=== PATIENT | male | born 1940 | race American Indian/Alaskan Native ===

== ENCOUNTER 2018-02-19 15:34 | Emergency (ER) | payer MEDICARE ==
[2018-02-19 17:07] LABS: Basophils % (Auto) 0.7 % (0.0-1.8); Eosinophils # (Auto) 0.2 K/mm3 (0.0-0.4); Eosinophils % (Auto) 4.3 % (0.0-4.3); Hematocrit 37.4 % (35.5-45.6); Hemoglobin 12.3 gm/dl (11.8-15.2); Lymphocytes # (Auto) 1.7 K/mm3 (1.2-5.4); Mean Corpuscular HGB Conc 33 % (32-34); Mean Corpuscular Hemoglobin 30 pg (28-32); Mean Corpuscular Volume 90 fl (84-94); Monocytes # (Auto) 0.7 K/mm3 (0.0-0.8); Monocytes % (Auto) 13.3 % (0.0-7.3); Platelet Count 186 K/mm3 (140-440); Red Blood Count 4.14 M/mm3 (3.65-5.03); Red Cell Distribution Width 14.8 % (13.2-15.2)
[2018-02-19 17:22] LABS: Alanine Aminotransferase 7 units/L (7-56); Albumin 3.7 g/dL (3.9-5); BUN/Creatinine Ratio 16; Blood Urea Nitrogen 18 mg/dL (9-20); Calcium 8.8 mg/dL (8.4-10.2); Hemolysis Index 5
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
--- NOTE | 2018-02-19 18:24 | XRay Report ---
FINAL REPORT EXAM: XR CHEST 1V AP HISTORY: Altered Mental Status TECHNIQUE: AP portable view of the chest PRIORS: None. FINDINGS: Lines, tubes, and devices: N/A Lungs and pleura: Trachea is normal in position. Lungs are clear of infiltrate, pleural effusion, vascular congestion, or pneumothorax. Cardiomediastinal silhouette: Cardiac and mediastinal silhouettes are unremarkable. Other: Bony structures are intact. IMPRESSION: No acute cardiopulmonary process seen.
--- NOTE | 2018-02-19 19:08 | Cat Scan Report ---
FINAL REPORT EXAM: CT HEAD/BRAIN WO CON HISTORY: AMS TECHNIQUE: Standard unenhanced CT of the head at 5.0 millimeter axial increments. PRIORS: None. FINDINGS: The ventricular system is normal in size and configuration. There is moderate cerebral and cerebellar atrophy. Low-density in the periventricular white matter in the bilateral centrum semiovale is noted. There is no evidence for mass lesion, mass effect, midline shift, acute intracranial hemorrhage, or acute ischemia/ infarction. No evidence for acute skull fracture is seen. No abnormality in the overlying scalp soft tissues is seen. Visualized paranasal sinuses are clear. IMPRESSION: Moderate atrophy and small vessel ischemic changes. No acute intracranial process noted.
[2018-02-19 21:16] VITALS: BP 118/62
== END 2018-02-19 22:56 | disposition home or self-care (01) ==
LOC: ED 15:34 → EDBD 15:34 → ED 22:56
DX: G30.9 Alzheimer's disease, unspecified (principal); I50.9 Heart failure, unspecified; E11.9 Type 2 diabetes mellitus without complications; K21.9 Gastro-esophageal reflux disease without esophagitis
CPT/HCPCS: 36415; 70450; 71045; 80053; 82140; 84443; 84484; 85025; 93005; 93010; 99285; G0480; 80320

== ENCOUNTER 2019-02-06 12:17 | Inpatient (IN) | payer MEDICARE ==
--- NOTE | 2019-02-06 13:45 | XRay Report ---
AP CHEST: HISTORY: Altered mental status AP view of the chest demonstrates a normal mediastinal and cardiac contour with clear lungs and normal bony and soft tissue structures. IMPRESSION: Unremarkable AP chest.
--- NOTE | 2019-02-06 13:48 | Emergency Department Report ---
ED Neuro Deficit HPI - General Chief Complaint: Altered Mental Status Stated Complaint: AMS Time Seen by Provider: 02/06/19 12:22 Source: EMS Mode of arrival: Stretcher Limitations: Altered Mental Status - History of Present Illness Initial Comments: This is a 78 year old man who is sent from longterm for evaluation of alteration of mental status. The patient is unable to give any historical information. The charge nurse, Jenise, got information from the treating nurses at the longterm. They stated that the patient is normally confused but a mbulatory. Today he had to be wheeled for breakfast in a wheelchair at 6:30 in the morning. He remained confused non-ambulatory and not speaking as much as he usually does. Ultimately they decided to send him to the emergency department for evaluation of his altered mental status. -: During the night Location: speech History of same: No Place: other (longterm) Severity: moderate, severe On Anticoagulants: No - Related Data Home Medications: Previous Rx's Medication Instructions Recorded Last Taken Type Nitrofurantoin [place]/M-Cryst 100 mg PO Q12HR #14 capsule 02/22/18 Unknown Rx [Macrobid CAP] Allergies/Adverse Reactions: Allergies Allergy/AdvReac Type Severity Reaction Status Date / Time No Known Allergies Allergy Verified 02/19/18 16:51 ED Review of Systems ROS: Stated complaint: AMS Other details as noted in HPI Comment: Unobtainable due to pts medical conditions ED Past Medical Hx - Past Medical History Previous Medical History?: Yes Hx Congestive Heart Failure: Yes Hx Diabetes: Yes Hx GERD: Yes Additional medical history: Hx Alzheimer's disease; Dementia; Rhabdomyolysis - Social History Smoking Status: Former Smoker Substance Use Type: Alcohol - Medications Home Medications: Home Medications Medication Instructions Recorded Confirmed Last Taken Type Nitrofurantoin [place]/M-Cryst 100 mg PO Q12HR #14 capsule 02/22/18 Unknown Rx [Macrobid CAP] ED Neuro Physical Exam - General Limitations: Altered Mental Status General appearance: alert, in no apparent distress Suspected Stroke: Yes (possible but subacute) - Head Head exam: Present: atraumatic, normocephalic - Eye Eye exam: Present: normal appearance - ENT ENT exam: Present: mucous membranes moist, other (perhaps slight facial asymmetry left side down) - Neck Neck exam: Present: normal inspection. Absent: tenderness, meningismus - Respiratory Respiratory exam: Present: normal lung sounds bilaterally. Absent: respiratory distress - Cardiovascular Cardiovascular Exam: Present: regular rate, normal rhythm. Absent: systolic murmur, diastolic murmur, rubs, gallop - GI/Abdominal GI/Abdominal exam: Present: soft, normal bowel sounds. Absent: distended, tenderness, guarding, rebound - Rectal Rectal exam: Present: deferred - Extremities Exam Extremities exam: Present: normal inspection - Back Exam Back exam: Present: normal inspection - Neurological Exam Neurological exam: Present: alert, oriented X3. Absent: CN II-XII intact (question facial asymmetry, no obvious deficits as testable) - NIHSS Assessment Interval: Baseline 1a. Level of Consciousness: arousable/minor stimuli 1b. LOC Questions: answers no questions correctly 1c. LOC Commands: performs no tasks correctly 2. Best Gaze: normal 3. Visual: no visual loss 4. Facial Palsy: minor paralysis (possibly) 5b. Motor Arm Right: no drift 5a. Motor Arm Left: no drift 6a. Motor Leg Left: no drift 6b. Motor Leg Right: no drift 7. Limb Ataxia: absent 8. Sensory: normal 9. Best Language: mild/moderate aphasia 10. Dysarthria: severe dysarthria 11. Extinction/Inattention: no abnormality (may be more attributable to mental status change) Total Score: 9 Stroke Severity: Moderate Stroke - Psychiatric Psychiatric exam: Present: normal affect, normal mood - Skin Skin exam: Present: warm, dry, intact, normal color. Absent: rash ED Course Vital Signs 02/06/19 02/06/19 02/06/19 12:22 12:40 13:20 Temperature 98.3 F Pulse Rate 77 97 H Respiratory 16 16 18 Rate Blood Pressure 111/90 99/52 [Left] O2 Sat by Pulse 98 96 96 Oximetry - Reevaluation(s) Reevaluation #1: Still awaiting CT images. I informed nursing. 02/06/19 13:48 02/06/19 15:36 D[address]ed with nephrology and Dr. Benitez. Admitted by Dr. Cook with nephrology consultation. Initial fluid resuscitation with normal saline and then half normal saline. Empiric antibiotics. Slowly ordered. CT the abdomen and pelvis to rule out obstruction. Further care per hospitalist service. Reevaluation #2: Obviously no indication for TPA. 02/06/19 15:39 - Lab Data Result diagrams: 02/06/19 13:13 02/06/19 13:13 Lab Results 02/06/19 02/06/19 02/06/19 Range/Units 13:13 13:13 13:13 WBC 10.0 (4.5-11.0) K/mm3 RBC 4.19 (3.65-5.03) M/mm3 Hgb 12.2 (11.8-15.2) gm/dl Hct 38.7 (35.5-45.6) % MCV 92 (84-94) fl MCH 29 (28-32) pg MCHC 32 (32-34) % RDW 18.3 H (13.2-15.2) % Plt Count 200 (140-440) K/mm3 Lymph % (Auto) 20.5 (13.4-35.0) % [place] % (Auto) 6.2 (0.0-7.3) % Eos % (Auto) 0.4 (0.0-4.3) % Baso % (Auto) 0.4 (0.0-1.8) % Lymph # 2.0 (1.2-5.4) K/mm3 [place] # 0.6 (0.0-0.8) K/mm3 Eos # 0.0 (0.0-0.4) K/mm3 Baso # 0.0 (0.0-0.1) K/mm3 Seg Neutrophils % 72.5 H (40.0-70.0) % Seg Neutrophils # 7.2 (1.8-7.7) K/mm3 PT 16.1 H (12.2-14.9) Sec. INR 1.21 H (0.87-1.13) APTT 31.1 (24.2-36.6) Sec. Sodium 165 H* (137-145) mmol/L Potassium 6.0 H (3.6-5.0) mmol/L Chloride 127.7 H (98-107) mmol/L Carbon Dioxide 18 L (22-30) mmol/L Anion Gap 25 mmol/L BUN 138 H (9-20) mg/dL Creatinine 6.1 H (0.8-1.5) mg/dL Estimated GFR 11 ml/min BUN/Creatinine Ratio 23 % Glucose 118 H (75-100) mg/dL Lactic Acid (0.7-2.0) mmol/L Calcium 8.9 (8.4-10.2) mg/dL Total Bilirubin 0.20 (0.1-1.2) mg/dL Direct Bilirubin < 0.2 (0-0.2) mg/dL Indirect Bilirubin 0.0 mg/dL AST 32 (5-40) units/L ALT 37 (7-56) units/L Alkaline Phosphatase 81 (35-129) units/L Ammonia (25-60) umol/L Total Creatine Kinase 698 H (55-170) units/L Troponin T 0.027 (0.00-0.029) ng/mL Total Protein 7.8 (6.3-8.2) g/dL Albumin 3.9 (3.9-5) g/dL Albumin/Globulin Ratio 1.0 % TSH (0.270-4.200) mlU/mL Blood Type Antibody Screen 02/06/19 02/06/19 02/06/19 Range/Units 13:13 13:13 13:13 WBC (4.5-11.0) K/mm3 RBC (3.65-5.03) M/mm3 Hgb (11.8-15.2) gm/dl Hct (35.5-45.6) % MCV (84-94) fl MCH (28-32) pg MCHC (32-34) % RDW (13.2-15.2) % Plt Count (140-440) K/mm3 Lymph % (Auto) (13.4-35.0) % [place] % (Auto) (0.0-7.3) % Eos % (Auto) (0.0-4.3) % Baso % (Auto) (0.0-1.8) % Lymph # (1.2-5.4) K/mm3 [place] # (0.0-0.8) K/mm3 Eos # (0.0-0.4) K/mm3 Baso # (0.0-0.1) K/mm3 Seg Neutrophils % (40.0-70.0) % Seg Neutrophils # (1.8-7.7) K/mm3 PT (12.2-14.9) Sec. INR (0.87-1.13) APTT (24.2-36.6) Sec. Sodium (137-145) mmol/L Potassium (3.6-5.0) mmol/L Chloride (98-107) mmol/L Carbon Dioxide (22-30) mmol/L Anion Gap mmol/L BUN (9-20) mg/dL Creatinine (0.8-1.5) mg/dL Estimated GFR ml/min BUN/Creatinine Ratio % Glucose (75-100) mg/dL Lactic Acid 2.80 H* (0.7-2.0) mmol/L Calcium (8.4-10.2) mg/dL Total Bilirubin (0.1-1.2) mg/dL Direct Bilirubin (0-0.2) mg/dL Indirect Bilirubin mg/dL AST (5-40) units/L ALT (7-56) units/L Alkaline Phosphatase (35-129) units/L Ammonia 28.0 (25-60) umol/L Total Creatine Kinase (55-170) units/L Troponin T (0.00-0.029) ng/mL Total Protein (6.3-8.2) g/dL Albumin (3.9-5) g/dL Albumin/Globulin Ratio % TSH 0.644 (0.270-4.200) mlU/mL Blood Type Antibody Screen 02/06/19 Range/Units 13:13 WBC (4.5-11.0) K/mm3 RBC (3.65-5.03) M/mm3 Hgb (11.8-15.2) gm/dl Hct (35.5-45.6) % MCV (84-94) fl MCH (28-32) pg MCHC (32-34) % RDW (13.2-15.2) % Plt Count (140-440) K/mm3 Lymph % (Auto) (13.4-35.0) % [place] % (Auto) (0.0-7.3) % Eos % (Auto) (0.0-4.3) % Baso % (Auto) (0.0-1.8) % Lymph # (1.2-5.4) K/mm3 [place] # (0.0-0.8) K/mm3 Eos # (0.0-0.4) K/mm3 Baso # (0.0-0.1) K/mm3 Seg Neutrophils % (40.0-70.0) % Seg Neutrophils # (1.8-7.7) K/mm3 PT (12.2-14.9) Sec. INR (0.87-1.13) APTT (24.2-36.6) Sec. Sodium (137-145) mmol/L Potassium (3.6-5.0) mmol/L Chloride (98-107) mmol/L Carbon Dioxide (22-30) mmol/L Anion Gap mmol/L BUN (9-20) mg/dL Creatinine (0.8-1.5) mg/dL Estimated GFR ml/min BUN/Creatinine Ratio % Glucose (75-100) mg/dL Lactic Acid (0.7-2.0) mmol/L Calcium (8.4-10.2) mg/dL Total Bilirubin (0.1-1.2) mg/dL Direct Bilirubin (0-0.2) mg/dL Indirect Bilirubin mg/dL AST (5-40) units/L ALT (7-56) units/L Alkaline Phosphatase (35-129) units/L Ammonia (25-60) umol/L Total Creatine Kinase (55-170) units/L Troponin T (0.00-0.029) ng/mL Total Protein (6.3-8.2) g/dL Albumin (3.9-5) g/dL Albumin/Globulin Ratio % TSH (0.270-4.200) mlU/mL Blood Type O POSITIVE Antibody Screen Negative Laboratory Results - last 24 hr 02/06/19 02/06/19 02/06/19 13:13 13:13 13:13 WBC 10.0 RBC 4.19 Hgb 12.2 Hct 38.7 MCV 92 MCH 29 MCHC 32 RDW 18.3 H Plt Count 200 Lymph % (Auto) 20.5 [place] % (Auto) 6.2 Eos % (Auto) 0.4 Baso % (Auto) 0.4 Lymph # 2.0 [place] # 0.6 Eos # 0.0 Baso # 0.0 Seg Neutrophils % 72.5 H Seg Neutrophils # 7.2 PT 16.1 H INR 1.21 H APTT 31.1 Sodium 165 H* Potassium 6.0 H Chloride 127.7 H Carbon Dioxide 18 L Anion Gap 25 Creatinine 6.1 H Estimated GFR 11 Glucose 118 H Lactic Acid Calcium 8.9 Total Bilirubin 0.20 Direct Bilirubin < 0.2 Indirect Bilirubin 0.0 AST 32 ALT 37 Alkaline Phosphatase 81 Ammonia Troponin T 0.027 Total Protein 7.8 Albumin 3.9 Albumin/Globulin Ratio 1.0 TSH 02/06/19 02/06/19 02/06/19 13:13 13:13 13:13 WBC RBC Hgb Hct MCV MCH MCHC RDW Plt Count Lymph % (Auto) [place] % (Auto) Eos % (Auto) Baso % (Auto) Lymph # [place] # Eos # Baso # Seg Neutrophils % Seg Neutrophils # PT INR APTT Sodium Potassium Chloride Carbon Dioxide Anion Gap Creatinine Estimated GFR Glucose Lactic Acid 2.80 H* Calcium Total Bilirubin Direct Bilirubin Indirect Bilirubin AST ALT Alkaline Phosphatase Ammonia 28.0 Troponin T Total Protein Albumin Albumin/Globulin Ratio TSH 0.644 BUN 138 - EKG Data -: EKG Interpreted by Me EKG shows normal: sinus rhythm Rate: normal Interpretation: LVH (intraventricular conduction delay, left axis deviation, 1 PVC) - Radiology Data Radiology results: image reviewed interpreted by me: Chest x-ray shows no acute process CT the head atrophy no acute process Critical care attestation.: If time is entered above; I have spent that time in minutes in the direct care of this critically ill patient, excluding procedure time. ED Disposition Clinical Impression: Acute encephalopathy, Hypernatremia, Uremia, Acute renal injury, Hyperkalemia Disposition: OP ADMIT IP TO THIS HOSP Is pt being admited?: Yes Does the pt Need Aspirin: Yes Condition: Stable Referrals: SHERINE LEDESMA MD [Primary Care Provider] - 3-5 Days Time of Disposition: 15:40
[2019-02-06 13:52] LABS: Basophils % (Auto) 0.4 % (0.0-1.8); Eosinophils % (Auto) 0.4 % (0.0-4.3); Hematocrit 38.7 % (35.5-45.6); Hemoglobin 12.2 gm/dl (11.8-15.2); Lymphocytes % (Auto) 20.5 % (13.4-35.0); Mean Corpuscular HGB Conc 32 % (32-34); Mean Corpuscular Volume 92 fl (84-94); Monocytes # (Auto) 0.6 K/mm3 (0.0-0.8); Monocytes % (Auto) 6.2 % (0.0-7.3); Platelet Count 200 K/mm3 (140-440); Red Blood Count 4.19 M/mm3 (3.65-5.03); Red Cell Distribution Width 18.3 % (13.2-15.2)
[2019-02-06 14:04] LABS: INR 1.21 (0.87-1.13); Partial Thromboplastin Time 31.1 Sec. (24.2-36.6)
[2019-02-06 14:11] LABS: Alanine Aminotransferase 37 units/L (7-56); Albumin 3.9 g/dL (3.9-5); Calcium 8.9 mg/dL (8.4-10.2); Hemolysis Index 7
[2019-02-06 14:14] LABS: Bilirubin,Direct < 0.2 mg/dL (0-0.2)
[2019-02-06 14:21] LABS: BUN/Creatinine Ratio 23; Blood Urea Nitrogen 138 mg/dL (9-20)
[2019-02-06] MEDS ORDERED: NACL 0.9% 1000 ML 1,000 ML IV ONE (14:22)
--- NOTE | 2019-02-06 14:24 | Cat Scan Report ---
CT HEAD WITHOUT CONTRAST: HISTORY: Altered mental status. TECHNIQUE: Sequential CT images without contrast. FINDINGS: Images obtained show bilateral prominence of the sulci and ventricles. There are no abnormal intra- or extra-axial blood or fluid collections. There are no focal masses or evidence of mass effect. The montgomery white matter differentiation appears within normal limits. Regions of periventricular decreased attenuation are consistent with microangiopathic ischemic disease. The posterior fossa structures including the fourth ventricle, cerebellum, and brainstem appear normal. IMPRESSION: Evidence of atrophy and microangiopathic ischemic disease. No acute intracranial process noted.
[2019-02-06] MEDS ORDERED: HumuLIN R IV ONE (14:29)
[2019-02-06] MEDS ORDERED: D50W (25GM) Syringe IV ONE ×2 (14:29→16:57)
[2019-02-06] MEDS ORDERED: ZOSYN/NS 3.375GM/50ML 3.375 GM/50 ML BAG IV ONE (14:30)
[2019-02-06] MEDS ORDERED: NACL 0.9% 500 ML 500 ML IV ONE (14:30)
[2019-02-06] MEDS ORDERED: NACL 0.9% 1000 ML 1,000 ML ONE (14:36)
[2019-02-06] MEDS ORDERED: NACL 0.45% 1000 ML 1,000 ML IV SCH (15:00)
[2019-02-06 15:33] LABS: Bilirubin,Urine NEG (Negative); Blood,Urine NEG (Negative); Color,Urine Yellow (Yellow); Hyaline Casts,Urine 9 /LPF; Protein,Urine <15 mg/dL mg/dL (Negative); RBC,Urine < 1.0 /HPF (0.0-6.0); Urobilinogen,Urine < 2.0 mg/dL (<2.0)
[2019-02-06] MEDS ORDERED: ASPIRIN PR ONE (15:40)
[2019-02-06] MEDS ORDERED: NACL 0.9% 500 ML 500 ML ONE (16:25)
[2019-02-06] MEDS ORDERED: ZOSYN/NS 4.5GM/100ML 4.5 GM/100 ML VIAL IV ONE (16:25)
[2019-02-06] MEDS ORDERED: D50W (25GM) Syringe IV PRN (17:15)
--- NOTE | 2019-02-06 18:46 | Cat Scan Report ---
PROCEDURE: CT ABDOMEN PELVIS WO CON TECHNIQUE: Computerized axial tomography of the abdomen and pelvis was performed without intravenous contrast. This study is performed without intravascular contrast material and its sensitivity for ab dominal and pelvic pathology, including neoplasms, inflammation, abscess, free fluid, thrombosis, art erial dissection and infarction, is reduced compared with a contrast enhanced study. CT DOSE LENGTH PRODUCT: 798.5 mGycm HISTORY: renal failure COMPARISONS: None . FINDINGS: Visualized lower thorax: No significant abnormality. Liver: Normal size and attenuation. There is a well-defined low-density focus in the dome of the left lobe liver measuring 2.4 x 2.5 x 2.5 cm, statistically likely a cyst Spleen: Normal size and attenuation. Gallbladder and biliary system: Normal. Pancreas: Normal. Adrenals: Normal. Kidneys: Normal. GI tract: Normal . Lymph nodes and mesentery: Normal. Vasculature: Normal.. Bladder: Land catheter is present within a collapsed bladder. Reproductive organs: Normal. Peritoneum: No free fluid. Musculoskeletal structures: Severe disc space narrowing at L4-L5 and L5-S1 is noted. Posterior spurri ng at these levels causes moderate neural foraminal narrowing bilaterally. Other: None. IMPRESSION: 1. No acute intra-abdominal abnormality 2. Cyst in the left lobe liver 3. Degenerative changes in lower lumbar spine This document is electronically signed by Jenise Elkins MD., February 06 2019 06:44:52 PM ET
[2019-02-06] MEDS ORDERED: PHENERGAN PR PRN (18:53)
[2019-02-06] MEDS ORDERED: SODIUM CHLORIDE FLUSH SYRINGE 10 ML IV PRN (18:53)
[2019-02-06] MEDS ORDERED: ZOFRAN IV PRN (18:53)
[2019-02-06] MEDS ORDERED: MORPHINE IV PRN (18:53)
[2019-02-06] MEDS ORDERED: SODIUM BICARBONATE FEEDTUBE PRN (19:05)
[2019-02-06] MEDS ORDERED: SIMPLE SYRUP FEEDTUBE PRN ×2 (19:05)
[2019-02-06] MEDS ORDERED: PANCREAZE DR 10,500 UNIT FEEDTUBE PRN (19:05)
--- NOTE | 2019-02-06 19:06 | History and Physical Report ---
History of Present Illness Date of examination: 02/06/19 Date of admission: 02/06/19 15:41 Chief complaint: Altered Mental Sense 1 day History of present illness: 78-year-old -[place] male with history of hypertension hyperlipidemia insulin-dependent diabetes and dementia and depression sent from [facility] for decreased sensorium of 1 day duration. Baseline is the patient is normally confused but ambulatory. This morning patient has been very confused and lethargic and not speaking as much as he usually does. No fever or chills. Not ambulatory. No chest pain. Past Medical History Previous Medical History?: Yes Congestive Heart Failure: Yes Diabetes: Yes GERD: Yes Hypertension Vascular Dementia; Rhabdomyolysis Surgical history not available Social History Smoking Status: Former Smoker Substance Use Type: Alcohol Family history not available Medications Home Medications: Home Medications Medication Instructions Recorded Confirmed Last Taken Type Nitrofurantoin Blanco/M-Cryst 100 mg PO Q12HR #14 capsule 02/22/18 Unknown Rx [Macrobid CAP] Review of Systems ROS: Stated complaint: AMS Other details as noted in HPI Comment: Unobtainable due to pts medical conditions 14 point review of systems attempted--could not be done because of the patient's condition Medications and Allergies Allergies Allergy/AdvReac Type Severity Reaction Status Date / Time No Known Allergies Allergy Verified 02/19/18 16:51 Home Medications Medication Instructions Recorded Confirmed Last Taken Type Acetaminophen [Tylenol] 650 mg PO Q4HR PRN 02/06/19 02/06/19 Unknown History Acetaminophen/Diphenhydramine 1 each PO Q8H 02/06/19 02/06/19 Unknown History [Tylenol Pm Ex-Strength Caplet] Aspirin [Adult Aspirin] 81 mg PO DAILY 02/06/19 02/06/19 Unknown History Atorvastatin [Lipitor Tab] 80 mg PO DAILY 02/06/19 02/06/19 Unknown History Dextrose [Glucose Gel] 38 gm PO Q15MIN 02/06/19 02/06/19 Unknown History Glucagon,Human Recombinant 1 mg IJ Q15MIN 02/06/19 02/06/19 Unknown History [Glucagon Emergency Kit] Insulin Regular, Human [HumuLIN R] 10 units IM DAILY 02/06/19 02/06/19 Unknown History Lisinopril [Zestril TAB] 40 mg PO DAILY 02/06/19 02/06/19 Unknown History Magnesium Hydroxide [Milk of 30 ml PO Q24H 02/06/19 02/06/19 Unknown History Magnesia] Melatonin [Melatonin 5MG CAP] 5 mg PO QHS 02/06/19 02/06/19 Unknown History Metoprolol [Lopressor TAB] 50 mg PO DAILY 02/06/19 02/06/19 Unknown History Nitroglycerin [Nitrostat] 0.4 mg SL Q5M PRN 02/06/19 02/06/19 Unknown History Polyethylene Glycol 3350 [Miralax 17 gm PO DAILY 02/06/19 02/06/19 Unknown History 3350] Ranitidine HCl [Zantac] 150 mg PO BID 02/06/19 02/06/19 Unknown History Rivastigmine [Rivastigmine Patch 1 each TD DAILY 02/06/19 02/06/19 Unknown H istory 13.3mg/24hr] Sertraline [Zoloft] 50 mg PO QAM 02/06/19 02/06/19 Unknown History Active Meds: Active Medications Dextrose (D50w (25gm) Syringe) 0 ml IV ONCE PRN PRN Reason: Hypoglycemia Last Admin: 02/06/19 17:17 Dose: 50 ml Documented by: Sodium Chloride (Nacl 0.45% 1000 Ml) 1,000 mls @ 150 mls/hr IV DIRECT MALIK Exam - Constitutional Vitals: Temp Pulse Resp BP Pulse Ox 98.3 F 92 H 18 99/53 98 02/06/19 12:40 02/06/19 17:30 02/06/19 17:30 02/06/19 17:30 02/06/19 17:30 General appearance: Present: mild distress, well-nourished - EENT Eyes: Present: PERRL ENT: hearing intact, clear oral mucosa, other (dry mucous membranes) - Neck Neck: Present: supple, normal ROM - Respiratory Respiratory effort: normal Respiratory: bilateral: CTA - Cardiovascular Heart rate: 98 Rhythm: regular Heart Sounds: Present: S1 & S2. Absent: rub, click - Extremities Extremities: no ischemia, pulses intact, pulses symmetrical, No edema Peripheral Pulses: within normal limits - Abdominal General gastrointestinal: Present: soft, non-tender, non-distended, normal bowel sounds Male genitourinary: Present: normal - Rectal Rectal Exam: deferred - Integumentary Integumentary: Present: clear, warm, dry - Musculoskeletal Musculoskeletal: generalized weakness (at) - Psychiatric Psychiatric: other - Neurologic Neurologic: moves all extremities, other (lethargic) Results - Labs CBC & Chem 7: 02/06/19 13:13 02/06/19 13:13 Labs: Laboratory Last Values WBC 10.0 K/mm3 (4.5-11.0) 02/06/19 13:13 RBC 4.19 M/mm3 (3.65-5.03) 02/06/19 13:13 Hgb 12.2 gm/dl (11.8-15.2) 02/06/19 13:13 Hct 38.7 % (35.5-45.6) 02/06/19 13:13 MCV 92 fl (84-94) 02/06/19 13:13 MCH 29 pg (28-32) 02/06/19 13:13 MCHC 32 % (32-34) 02/06/19 13:13 RDW 18.3 % (13.2-15.2) H 02/06/19 13:13 Plt Count 200 K/mm3 (140-440) 02/06/19 13:13 Lymph % (Auto) 20.5 % (13.4-35.0) 02/06/19 13:13 Blanco % (Auto) 6.2 % (0.0-7.3) 02/06/19 13:13 Eos % (Auto) 0.4 % (0.0-4.3) 02/06/19 13:13 Baso % (Auto) 0.4 % (0.0-1.8) 02/06/19 13:13 Lymph # 2.0 K/mm3 (1.2-5.4) 02/06/19 13:13 Blanco # 0.6 K/mm3 (0.0-0.8) 02/06/19 13:13 Eos # 0.0 K/mm3 (0.0-0.4) 02/06/19 13:13 Baso # 0.0 K/mm3 (0.0-0.1) 02/06/19 13:13 Seg Neutrophils % 72.5 % (40.0-70.0) H 02/06/19 13:13 Seg Neutrophils # 7.2 K/mm3 (1.8-7.7) 02/06/19 13:13 PT 16.1 Sec. (12.2-14.9) H 02/06/19 13:13 INR 1.21 (0.87-1.13) H 02/06/19 13:13 APTT 31.1 Sec. (24.2-36.6) 02/06/19 13:13 Sodium 165 mmol/L (137-145) H* 02/06/19 13:13 Potassium 6.0 mmol/L (3.6-5.0) H 02/06/19 13:13 Chloride 127.7 mmol/L (98-107) H 02/06/19 13:13 Carbon Dioxide 18 mmol/L (22-30) L 02/06/19 13:13 25 mmol/L 02/06/19 13:13 BUN 138 mg/dL (9-20) H 02/06/19 13:13 6.1 mg/dL (0.8-1.5) H 02/06/19 13:13 Estimated GFR 11 ml/min 02/06/19 13:13 23 % 02/06/19 13:13 Glucose 118 mg/dL (75-100) H 02/06/19 13:13 POC Glucose 75 (70-105) 02/06/19 18:38 Lactic Acid 4.00 mmol/L (0.7-2.0) H* 02/06/19 15:42 Calcium 8.9 mg/dL (8.4-10.2) 02/06/19 13:13 0.20 mg/dL (0.1-1.2) 02/06/19 13:13 < 0.2 mg/dL (0-0.2) 02/06/19 13:13 0.0 mg/dL 02/06/19 13:13 AST 32 units/L (5-40) 02/06/19 13:13 ALT 37 units/L (7-56) 02/06/19 13:13 81 units/L (35-129) 02/06/19 13:13 28.0 umol/L (25-60) 02/06/19 13:13 698 units/L (55-170) H 02/06/19 13:13 0.027 ng/mL (0.00-0.029) 02/06/19 13:13 7.8 g/dL (6.3-8.2) 02/06/19 13:13 3.9 g/dL (3.9-5) 02/06/19 13:13 1.0 % 02/06/19 13:13 TSH 0.644 mlU/mL (0.270-4.200) 02/06/19 13:13 Yellow (Yellow) 02/06/19 15:22 Clear (Clear) 02/06/19 15:22 5.0 (5.0-7.0) 02/06/19 15:22 Ur Specific [place] 1.019 (1.003-1.030) 02/06/19 15:22 <15 mg/dl mg/dL (Negative) 02/06/19 15:22 Neg mg/dL (Negative) 02/06/19 15:22 Neg mg/dL (Negative) 02/06/19 15:22 Neg (Negative) 02/06/19 15:22 Neg (Negative) 02/06/19 15:22 Neg (Negative) 02/06/19 15:22 < 2.0 mg/dL (<2.0) 02/06/19 15:22 Ur Leukocyte Esterase Neg (Negative) 02/06/19 15:22 1.0 /HPF (0.0-6.0) 02/06/19 15:22 < 1.0 /HPF (0.0-6.0) 02/06/19 15:22 Hyaline Casts 9 /LPF 02/06/19 15:22 Blood Type O POSITIVE 02/06/19 13:13 Antibody Screen Negative 02/06/19 13:13 - Imaging and Cardiology EKG: report reviewed Imaging and Cardiology: EKG Data Interpreted by Me EKG shows normal: sinus rhythm Rate: normal Interpretation: LVH (intraventricular conduction delay, left axis deviation, 1 PVC) Radiology Data Radiology results: image reviewed interpreted by me: Chest x-ray shows no acute process CT the head atrophy no acute process Assessment and Plan Assessment and plan: Critical care segment The eyebrow old B of a clinically significant sudden or life-threatening deterioration of the pulmonary cardiac reveals systems required my full and direct attention intervention and personal management. The aggregate critical care time was 45 minutes. This time was in addition to time spent performing reported procedures but includes the following 1 data review and interpretation 2 patient assessment and monitoring of vital signs 3 documentation 4 medication orders and management Advance Directives: Yes (full code) VTE prophylaxis?: Chemical Plan of care discussed with patient/family: Yes - Patient Problems (1) Acute encephalopathy Current Visit: Yes Status: Acute Plan to address problem: Acute encephalopathy secondary to severe dehydration and acute kidney injury Patient. To get IV fluids in the form of D5W and IV antibiotics and empirically. (2) Sepsis Current Visit: Yes Status: Acute Plan to address problem: No source of infection found Patient started on IV vancomycin and IV cefepime (3) Hyperkalemia Current Visit: Yes Status: Acute Plan to address problem: Kayexalate and calcium gluconate and sodium bicarbonate given (4) Acute kidney injury Current Visit: Yes Status: Acute Plan to address problem: Patient is severely volume depleted Patient's kidney function may improve with IV fluids especially D5W Underlying chronic kidney disease is a possibility Nephrology consult requested (5) Hypotension Current Visit: Yes Status: Acute Qualifiers: Hypotension type: unspecified hypotension type Qualified Code(s): I95.9 - Hypotension, unspecified Plan to address problem: Possible sepsis IV fluids and IV antibiotics Lactic acid elevated (6) Hypertension Current Visit: Yes Status: Chronic Qualifiers: Hypertension type: essential hypertension Qualified Code(s): I10 - Essential (primary) hypertension Plan to address problem: We will hold antihypertensives for the time being until her blood pressure normalizes or gets elevated (7) Insulin dependent diabetes mellitus Current Visit: Yes Status: Chronic Plan to address problem: We will give coverage only for now Check hemoglobin A1c (8) Hyperlipidemia Current Visit: Yes Status: Chronic Qualifiers: Hyperlipidemia type: mixed hyperlipidemia Qualified Code(s): E78.2 - Mixed hyperlipidemia Plan to address problem: We will hold the statins for now (9) Vascular dementia Current Visit: Yes Status: Chronic Qualifiers: Dementia behavioral disturbance: without behavioral disturbance Qualified C ode(s): F01.50 - Vascular dementia without behavioral disturbance Plan to address problem: Continue Exelon patch (10) Depression Current Visit: Yes Status: Chronic Qualifiers: Depression Type: unspecified Qualified Code(s): F32.9 - Major depressive disorder, single episode, unspecified Plan to address problem: We will hold the Zoloft for now (11) DVT prophylaxis Current Visit: Yes Status: Acute Plan to address problem: Patient started on heparin and GI prophylaxis
--- NOTE | 2019-02-06 19:37 | Consultation ---
History of Present Illness - Reason for Consult Consult date: 02/06/19 acute renal failure, hypernatremia, hyperkalemia - History of Present Illness Mr. Connor is a 78yo SNF resident who presented to the ED with altered mental status and recent hx of poor po intake. Patient's niece is at bedside and states that she last saw patient on Sunday; she reports that patient was in usual state of health at that time. At baseline, patient is confused (due to Alzheimer's dementia), ambulatory and interactive. In the ED, labs are notable for Na 165, BUN 138, Creatinine 6.1 and K 6.0. Nephrology consultation requested by the primary team. Past History Past Medical History: diabetes, other (Alzheimer's dementia ) Past Surgical History: No surgical history Social history: other (resides in a SNF) Medications and Allergies Allergies Allergy/AdvReac Type Severity Reaction Status Date / Time No Known Allergies Allergy Verified 02/19/18 16:51 Home Medications Medication Instructions Recorded Confirmed Last Taken Type Acetaminophen [Tylenol] 650 mg PO Q4HR PRN 02/06/19 02/06/19 Unknown History Acetaminophen/Diphenhydramine 1 each PO Q8H 02/06/19 02/06/19 Unknown History [Tylenol Pm Ex-Strength Caplet] Aspirin [Adult Aspirin] 81 mg PO DAILY 02/06/19 02/06/19 Unknown History Atorvastatin [Lipitor Tab] 80 mg PO DAILY 02/06/19 02/06/19 Unknown History Dextrose [Glucose Gel] 38 gm PO Q15MIN 02/06/19 02/06/19 Unknown History Glucagon,Human Recombinant 1 mg IJ Q15MIN 02/06/19 02/06/19 Unknown History [Glucagon Emergency Kit] Insulin Regular, Human [HumuLIN R] 10 units IM DAILY 02/06/19 02/06/19 Unknown History Lisinopril [Zestril TAB] 40 mg PO DAILY 02/06/19 02/06/19 Unknown History Magnesium Hydroxide [Milk of 30 ml PO Q24H 02/06/19 02/06/19 Unknown History Magnesia] Melatonin [Melatonin 5MG CAP] 5 mg PO QHS 02/06/19 02/06/19 Unknown History Metoprolol [Lopressor TAB] 50 mg PO DAILY 02/06/19 02/06/19 Unknown History Nitroglycerin [Nitrostat] 0.4 mg SL Q5M PRN 02/06/19 02/06/19 Unknown History Polyethylene Glycol 3350 [Miralax 17 gm PO DAILY 02/06/19 02/06/19 Unknown History 3350] Ranitidine HCl [Zantac] 150 mg PO BID 02/06/19 02/06/19 Unknown History Rivastigmine [Rivastigmine Patch 1 each TD DAILY 02/06/19 02/06/19 Unknown History 13.3mg/24hr] Sertraline [Zoloft] 50 mg PO QAM 02/06/19 02/06/19 Unknown History Active Meds: Active Medications Acetaminophen (Tylenol) 650 mg PO Q4H PRN PRN Reason: Pain MILD(1-3)/Fever >100.5/PÉREZ Lipase/Protease/Amylase (Pancreaze Dr 10,500 Unit) 1 each FEEDTUBE PRN PRN PRN Reason: For Clogged Feeding Tube Dextrose (D50w (25gm) Syringe) 0 ml IV ONCE PRN PRN Reason: Hypoglycemia Last Admin: 02/06/19 17:17 Dose: 50 ml Documented by: Famotidine (Pepcid) 10 mg IV BID MALIK Dextrose (D5w) 1,000 mls @ 125 mls/hr IV DIRECT MALIK Cefepime HCl (Maxipime/Ns 1 Gm/100 Ml) 1 gm in 100 mls @ 200 mls/hr IV Q24H MALIK; Protocol Vancomycin HCl 1,250 mg/ (Sodium Chloride) 275 mls @ 166.667 mls/hr IV ONCE ONE Stop: 02/06/19 21:38 Miscellaneous Medication (Rivastigmine [Rivastigmine Patch 13.3mg/24hr]) 1 each TD DAILY MALIK Morphine Sulfate (Morphine) 2 mg IV Q4H PRN PRN Reason: Pain, Moderate (4-6) Ondansetron HCl (Zofran) 4 mg IV Q8H PRN PRN Reason: Nausea And Vomiting Promethazine HCl (Phenergan) 25 mg ND Q6H PRN PRN Reason: N/V IF NPO AND NO IV ACCESS Simple Syrup (Simple Syrup) 15 ml FEEDTUBE PRN PRN PRN Reason: Hypoglycemia Simple Syrup (Simple Syrup) 30 ml FEEDTUBE PRN PRN PRN Reason: Hypoglycemia Sodium Bicarbonate (Sodium Bicarbonate) 325 mg FEEDTUBE PRN PRN PRN Reason: For Clogged Feeding Tube Sodium Chloride (Sodium Chloride Flush Syringe 10 Ml) 10 ml IV BID MALIK Sodium Chloride (Sodium Chloride Flush Syringe 10 Ml) 10 ml IV PRN PRN PRN Reason: LINE FLUSH Review of Systems ROS unobtainable: due to mental status Exam - Vital Signs Vital signs: Vital Signs Pulse Resp BP Pulse Ox 77 16 111/90 98 02/06/19 12:22 02/06/19 12:22 02/06/19 12:22 02/06/19 12:22 - General Appearance General appearance: well-developed, well-nourished EENT: ATNC Respiratory: Clear to Ascultation Heart: regular (no pericardial friction rub), S1S2 Gastrointestinal: Present: normoactive bowel sounds Integumentary: no rash, warm and dry Neurologic: other (awake, nonverbal) Results - Lab Results 02/06/19 13:13 02/06/19 13:13 Most recent lab results Calcium 8.9 mg/dL (8.4-10.2) 02/06/19 13:13 Assessment and Plan Impression: * Acute kidney injury secondary to dehydration * Hypernatremia * Hyperkalemia * Azotemia * Encephalopathy Plan: * Renal prognosis is guarded. Conservative management for now - IVF for volume repletion. If renal function fails to improve, patient will require renal replacement therapy. Discussed with patient's daughter at bedside * Medical management of eletrolytes * Imaging reviewed * Abx per primary team * Strict I/O * Dose medications for renal funtion * Avoid potential nephrotoxins * Repeat BMP today * AM labs
[2019-02-06] MEDS ORDERED: VANCOMYCIN PHARMACY TO DOSE IV SCH (20:00)
[2019-02-06] MEDS ORDERED: VANCOMYCIN 1,250 MG in NACL 0.9% 250ML 250 ML IV ONE (20:00)
[2019-02-06 20:48] LABS: Calcium 8.6 mg/dL (8.4-10.2)
[2019-02-06] MEDS: PEPCID IV SCH (22:28)
[2019-02-06] MEDS: D5W 1,000 ML IV SCH (22:29)
[2019-02-06] MEDS: SODIUM CHLORIDE FLUSH SYRINGE 10 ML IV SCH (22:43)
[2019-02-07] MEDS: MAXIPIME/NS 1 GM/100 ML 1 GM/100 ML BAG IV SCH ×2 (00:31→23:15)
--- NOTE | 2019-02-07 03:13 | XRay Report ---
PROCEDURE: XR ABDOMEN 1V AP TECHNIQUE: Abdominal radiograph, single view. HISTORY: NG tube placement confirmation COMPARISONS: None . FINDINGS/ IMPRESSION: The NG tube ends at the proximal stomach. No abnormal bowel dilatation or bowel obstruction. Mild amount of stool in the colon. This document is electronically signed by James Jean-Baptiste MD., February 07 2019 03:11:14 AM ET
[2019-02-07 05:30] LABS: Basophils % (Auto) 0.3 % (0.0-1.8); Eosinophils # (Auto) 0.1 K/mm3 (0.0-0.4); Eosinophils % (Auto) 0.7 % (0.0-4.3); Hematocrit 31.8 % (35.5-45.6); Hemoglobin 10.2 gm/dl (11.8-15.2); Lymphocytes # (Auto) 2.1 K/mm3 (1.2-5.4); Lymphocytes % (Auto) 24.6 % (13.4-35.0); Mean Corpuscular HGB Conc 32 % (32-34); Mean Corpuscular Volume 90 fl (84-94); Monocytes # (Auto) 0.6 K/mm3 (0.0-0.8); Monocytes % (Auto) 7.4 % (0.0-7.3); Platelet Count 154 K/mm3 (140-440); Red Blood Count 3.52 M/mm3 (3.65-5.03); Red Cell Distribution Width 17.3 % (13.2-15.2)
[2019-02-07 06:03] LABS: Albumin 3.2 g/dL (3.9-5); Calcium 7.8 mg/dL (8.4-10.2)
[2019-02-07] MEDS: HumaLOG SUB-Q SCH ×2 (06:46→12:00)
[2019-02-07] MEDS ORDERED: D5W 500 ML IV ONE (09:00)
[2019-02-07] MEDS ORDERED: D5W 1,000 ML IV SCH (09:00)
[2019-02-07] MEDS ORDERED: RIVASTIGMINE TD SCH (10:00)
[2019-02-07] MEDS: PEPCID IV SCH ×2 (10:22→23:16)
[2019-02-07] MEDS: SODIUM CHLORIDE FLUSH SYRINGE 10 ML IV SCH ×2 (10:23→23:16)
[2019-02-07] MEDS ORDERED: KIONEX PO ONE (10:55)
--- NOTE | 2019-02-07 10:58 | Progress Note ---
Assessment and Plan Assessment and plan: -- Acute encephalopathy Multifactorial ,dehydration and acute kidney injury, electrolyte abnormalities Treat the underlying cause , supportive care --Lactic acidosis /possible Sepsis Empiric antibiotics , follow cultures Patient started on IV vancomycin and IV cefepime ID evaluation if needed -- Hyperkalemia Kayexalate and calcium gluconate and sodium bicarbonate given Monitor potassium levels --Hypernatremia: Free water flushes, D5W, monitor sodium levels -- Acute kidney injury Vasomotor nephropathy ,Patient is severely volume depleted Gentle hydration and monitor renal function, avoid nephrotoxins Nephrology following --Hypotension/possible septic shock IV fluids and IV antibiotics, supportive care Lactic acid trending down --History of Hypertension We will hold antihypertensives due to hypotension -- Insulin dependent diabetes mellitus Accu-Chek sliding scale coverage and ADA diet ,long-acting insulin As needed, Check hemoglobin A1c -- Hyperlipidemia We will hold the statins for now -- Vascular dementia: Continue Exelon patch --H/O Depression As patient is lethargic We will hold Zoloft for now . -- DVT prophylaxis Heparin renal dose --Full code status Monitor the patient closely and adjust management as needed Plan of care is reviewed with the patient's family member niece and brother at the bedside CODE STATUS discussed with them, Full code Critical care time 32 minutes History Interval history: Patient seen and examined medical records reviewed, family member at the bedside Patient is admitted with altered level of consciousness sepsis and acute renal failure and lactic acidosis hyperkalemia and hypernatremia, Patient is lethargic and confused Hypertensive, bradycardic In mild distress, vital signs reviewed Hospitalist Physical - Constitutional Vitals: Temp Pulse Resp BP Pulse Ox 98.6 F 64 12 119/26 100 02/07/19 04:56 02/07/19 04:11 02/07/19 04:11 02/07/19 04:11 02/07/19 04:11 General appearance: Present: mild distress, well-nourished, other (Lethergic) - EENT Eyes: Present: PERRL, EOM intact - Neck Neck: Present: supple, normal ROM - Respiratory Respiratory effort: normal Respiratory: bilateral: diminished, rhonchi, negative: rales, wheezing - Cardiovascular Rhythm: regular Heart Sounds: Present: S1 & S2 - Extremities Extremities: no ischemia, No edema - Abdominal General gastrointestinal: soft, non-tender, non-distended, normal bowel sounds - Integumentary Integumentary: Present: clear, warm - Psychiatric Psychiatric: other (confused and lethargic) - Neurologic Neurologic: moves all extremities Results - Labs CBC & Chem 7: 02/07/19 04:56 02/07/19 04:56 Labs: Laboratory Last Values WBC 8.5 K/mm3 (4.5-11.0) 02/07/19 04:56 RBC 3.52 M/mm3 (3.65-5.03) L 02/07/19 04:56 Hgb 10.2 gm/dl (11.8-15.2) L 02/07/19 04:56 Hct 31.8 % (35.5-45.6) L D 02/07/19 04:56 MCV 90 fl (84-94) 02/07/19 04:56 MCH 29 pg (28-32) 02/07/19 04:56 MCHC 32 % (32-34) 02/07/19 04:56 RDW 17.3 % (13.2-15.2) H 02/07/19 04:56 Plt Count 154 K/mm3 (140-440) 02/07/19 04:56 Lymph % (Auto) 24.6 % (13.4-35.0) 02/07/19 04:56 [place] % (Auto) 7.4 % (0.0-7.3) H 02/07/19 04:56 Eos % (Auto) 0.7 % (0.0-4.3) 02/07/19 04:56 Baso % (Auto) 0.3 % (0.0-1.8) 02/07/19 04:56 Lymph # 2.1 K/mm3 (1.2-5.4) 02/07/19 04:56 [place] # 0.6 K/mm3 (0.0-0.8) 02/07/19 04:56 Eos # 0.1 K/mm3 (0.0-0.4) 02/07/19 04:56 Baso # 0.0 K/mm3 (0.0-0.1) 02/07/19 04:56 Seg Neutrophils % 67.0 % (40.0-70.0) 02/07/19 04:56 Seg Neutrophils # 5.7 K/mm3 (1.8-7.7) 02/07/19 04:56 PT 16.1 Sec. (12.2-14.9) H 02/06/19 13:13 INR 1.21 (0.87-1.13) H 02/06/19 13:13 APTT 31.1 Sec. (24.2-36.6) 02/06/19 13:13 Sodium 164 mmol/L (137-145) H* 02/07/19 04:56 Potassium 5.5 mmol/L (3.6-5.0) H 02/07/19 04:56 Chloride 133.4 mmol/L (98-107) H 02/07/19 04:56 Carbon Dioxide 17 mmol/L (22-30) L 02/07/19 04:56 18 mmol/L 02/07/19 04:56 BUN 119 mg/dL (9-20) H 02/07/19 04:56 4.5 mg/dL (0.8-1.5) H 02/07/19 04:56 Estimated GFR 15 ml/min 02/07/19 04:56 26 % 02/07/19 04:56 Glucose 107 mg/dL (75-100) H 02/07/19 04:56 POC Glucose 121 (70-105) H 02/07/19 06:51 6.8 % (4-6) H 02/06/19 20:05 Lactic Acid 2.90 mmol/L (0.7-2.0) H* 02/06/19 21:21 Calcium 7.8 mg/dL (8.4-10.2) L 02/07/19 04:56 0.20 mg/dL (0.1-1.2) 02/07/19 04:56 < 0.2 mg/dL (0-0.2) 02/06/19 13:13 0.0 mg/dL 02/06/19 13:13 AST 23 units/L (5-40) 02/07/19 04:56 ALT 25 units/L (7-56) 02/07/19 04:56 62 units/L (35-129) 02/07/19 04:56 28.0 umol/L (25-60) 02/06/19 13:13 698 units/L (55-170) H 02/06/19 13:13 0.027 ng/mL (0.00-0.029) 02/06/19 13:13 6.3 g/dL (6.3-8.2) 02/07/19 04:56 3.2 g/dL (3.9-5) L 02/07/19 04:56 1.0 % 02/07/19 04:56 TSH 0.644 mlU/mL (0.270-4.200) 02/06/19 13:13 Yellow (Yellow) 02/06/19 15:22 Clear (Clear) 02/06/19 15:22 5.0 (5.0-7.0) 02/06/19 15:22 Ur Specific [place] 1.019 (1.003-1.030) 02/06/19 15:22 <15 mg/dl mg/dL (Negative) 02/06/19 15:22 Neg mg/dL (Negative) 02/06/19 15:22 Neg mg/dL (Negative) 02/06/19 15:22 Neg (Negative) 02/06/19 15:22 Neg (Negative) 02/06/19 15:22 Neg (Negative) 02/06/19 15:22 < 2.0 mg/dL (<2.0) 02/06/19 15:22 Ur Leukocyte Esterase Neg (Negative) 02/06/19 15:22 1.0 /HPF (0.0-6.0) 02/06/19 15:22 < 1.0 /HPF (0.0-6.0) 02/06/19 15:22 Hyaline Casts 9 /LPF 02/06/19 15:22 Blood Type O POSITIVE 02/06/19 13:13 Antibody Screen Negative 02/06/19 13:13 Active Medications - Current Medications Current Medications: Generic Name Dose Route Start Last Admin Trade Name Freq PRN Reason Stop Dose Admin Acetaminophen 650 mg 02/06/19 18:53 Tylenol PO Q4H PRN Pain MILD(1-3)/Fever >100.5/PÉREZ Lipase/Protease/Amylase 1 each 02/06/19 19:05 Pancreaze 10,500 Unit FEEDTUBE PRN PRN For Clogged Feeding Tube Dextrose 0 ml 02/06/19 17:15 02/06/19 17:17 D50w (25gm) Syringe IV 50 ml ONCE PRN Administration Hypoglycemia Famotidine 10 mg 02/06/19 22:00 02/07/19 10:22 Pepcid IV 10 mg BID MALIK Administration Dextrose 1,000 mls @ 125 mls/hr 02/06/19 19:00 02/06/19 22:29 D5w IV 125 mls/hr DIRECT MALIK Administration Cefepime HCl 1 gm in 100 mls @ 200 mls/hr 02/06/19 21:00 02/07/19 00:31 Maxipime/Ns 1 Gm/100 Ml IV 200 mls/hr Q24H MALIK Administration Protocol Insulin Human Lispro 0 unit 02/07/19 07:00 02/07/19 06:46 Humalog SUB-Q Not Given Q6HR [facility] Protocol Miscellaneous Medication 1 each 02/07/19 10:00 Rivastigmine [Rivastigmine Patch 13.3mg/24hr] TD DAILY MALIK Morphine Sulfate 2 mg 02/06/19 18:53 02/06/19 22:28 Morphine IV 2 mg Q4H PRN Administration Pain, Moderate (4-6) Ondansetron HCl 4 mg 02/06/19 18:53 02/06/19 22:28 Zofran IV 4 mg Q8H PRN Administration Nausea And Vomiting Promethazine HCl 25 mg 02/06/19 18:53 Phenergan IN Q6H PRN N/V IF NPO AND NO IV ACCESS Simple Syrup 15 ml 02/06/19 19:05 Simple Syrup FEEDTUBE PRN PRN Hypoglycemia Simple Syrup 30 ml 02/06/19 19:05 Simple Syrup FEEDTUBE PRN PRN Hypoglycemia Sodium Bicarbonate 325 mg 02/06/19 19:05 Sodium Bicarbonate FEEDTUBE PRN PRN For Clogged Feeding Tube Sodium Chloride 10 ml 02/06/19 22:00 02/07/19 10:23 Sodium Chloride Flush Syringe 10 Ml IV 10 ml BID MALIK Administration Sodium Chloride 10 ml 02/06/19 18:53 Sodium Chloride Flush Syringe 10 Ml IV PRN PRN LINE FLUSH
--- NOTE | 2019-02-07 13:02 | Progress Note ---
Assessment and Plan Impression: * Nonoliguric acute kidney injury secondary to dehydration * Hypernatremia * Hyperkalemia * Azotemia * Encephalopathy Plan: * Renal prognosis is guarded. However, will continue conservative management for now as BUN/SCr gradually trending down and UOP improved. * Continue IVF for volume repletion - currently receiving D5W. Note addition of free water via NGT * Medical management of electrolytes * Abx per primary team * Strict I/O * Dose medications for renal funtion * Avoid potential nephrotoxins * AM labs * Niece at bedside - updated Subjective Date of service: 02/07/19 Interval history: No acute events overnight. Objective - Vital Signs Vital signs: Vital Signs - 12hr 02/07/19 02/07/19 02/07/19 01:11 01:21 01:31 Temperature Pulse Rate 81 82 88 Pulse Rate [ From Monitor] Respiratory 10 L 14 11 L Rate Blood Pressure 110/31 110/31 110/31 O2 Sat by Pulse 95 83 L Oximetry 02/07/19 02/07/19 02/07/19 01:41 01:51 02:01 Temperature Pulse Rate 93 H 99 H 87 Pulse Rate [ From Monitor] Respiratory 13 15 11 L Rate Blood Pressure 110/31 110/31 110/31 O2 Sat by Pulse 100 98 Oximetry 02/07/19 02/07/19 02/07/19 02:11 02:21 02:30 Temperature Pulse Rate 69 94 H Pulse Rate [ From Monitor] Respiratory 13 16 Rate Blood Pressure 110/31 110/31 110/31 O2 Sat by Pulse 83 L Oximetry 02/07/19 02/07/19 02/07/19 02:41 02:51 03:01 Temperature Pulse Rate 60 67 68 Pulse Rate [ From Monitor] Respiratory 12 11 L 13 Rate Blood Pressure 124/25 124/25 124/25 O2 Sat by Pulse 100 100 100 Oximetry 02/07/19 02/07/19 02/07/19 03:11 03:21 03:31 Temperature Pulse Rate 77 61 75 Pulse Rate [ From Monitor] Respiratory 16 13 13 Rate Blood Pressure 124/25 124/25 124/25 O2 Sat by Pulse 100 100 100 Oximetry 02/07/19 02/07/19 02/07/19 03:41 03:51 04:00 Temperature Pulse Rate 95 H 75 64 Pulse Rate [ 87 From Monitor] Respiratory 14 14 15 Rate Blood Pressure 124/25 124/25 O2 Sat by Pulse 100 100 99 Oximetry 02/07/19 02/07/19 02/07/19 04:01 04:11 04:56 Temperature 98.6 F Pulse Rate 62 64 Pulse Rate [ From Monitor] Respiratory 11 L 12 Rate Blood Pressure 119/26 119/26 O2 Sat by Pulse 100 100 Oximetry 02/07/19 02/07/19 02/07/19 05:01 06:01 07:01 Temperature Pulse Rate 68 79 62 Pulse Rate [ From Monitor] Respiratory 14 13 14 Rate Blood Pressure 119/26 119/26 119/26 O2 Sat by Pulse 100 100 100 Oximetry 02/07/19 02/07/19 02/07/19 08:00 08:01 09:01 Temperature 97.6 F Pulse Rate 64 68 Pulse Rate [ From Monitor] Respiratory 8 L 13 Rate Blood Pressure 82/53 83/32 O2 Sat by Pulse 100 98 Oximetry 02/07/19 02/07/19 02/07/19 10:01 11:01 12:00 Temperature 97.8 F Pulse Rate 56 L 66 83 Pulse Rate [ From Monitor] Respiratory 12 13 12 Rate Blood Pressure 88/39 89/35 98/45 O2 Sat by Pulse 100 100 Oximetry - General Appearance General appearance: well-developed, well-nourished EENT: ATNC Respiratory: Present: Clear to Ascultation (anteriorly) Cardiology: regular, S1S2 Gastrointestinal: normal, no tenderness, no distended Integumentary: warm and dry Neurologic: other (awake, alert) Musculoskeletal: other (no edema) Psychiatric: cooperative - Lab 02/07/19 04:56 02/07/19 04:56 Most recent lab results Calcium 7.8 mg/dL (8.4-10.2) L 02/07/19 04:56 Medications & Allergies - Medications Allergies/Adverse Reactions: Allergies No Known Allergies Allergy (Verified 02/19/18 16:51) Home Medications: Home Medications Medication Instructions Recorded Confirmed Last Taken Type Acetaminophen [Tylenol] 650 mg PO Q4HR PRN 02/06/19 02/06/19 Unknown History Acetaminophen/Diphenhydramine 1 each PO Q8H 02/06/19 02/06/19 Unknown History [Tylenol Pm Ex-Strength Caplet] Aspirin [Adult Aspirin] 81 mg PO DAILY 02/06/19 02/06/19 Unknown History Atorvastatin [Lipitor Tab] 80 mg PO DAILY 02/06/19 02/06/19 Unknown History Dextrose [Glucose Gel] 38 gm PO Q15MIN 02/06/19 02/06/19 Unknown History Glucagon,Human Recombinant 1 mg IJ Q15MIN 02/06/19 02/06/19 Unknown History [Glucagon Emergency Kit] Insulin Regular, Human [HumuLIN R] 10 units IM DAILY 02/06/19 02/06/19 Unknown History Lisinopril [Zestril TAB] 40 mg PO DAILY 02/06/19 02/06/19 Unknown History Magnesium Hydroxide [Milk of 30 ml PO Q24H 02/06/19 02/06/19 Unknown History Magnesia] Melatonin [Melatonin 5MG CAP] 5 mg PO QHS 02/06/19 02/06/19 Unknown History Metoprolol [Lopressor TAB] 50 mg PO DAILY 02/06/19 02/06/19 Unknown History Nitroglycerin [Nitrostat] 0.4 mg SL Q5M PRN 02/06/19 02/06/19 Unknown History Polyethylene Glycol 3350 [Miralax 17 gm PO DAILY 02/06/19 02/06/19 Unknown History 3350] Ranitidine HCl [Zantac] 150 mg PO BID 02/06/19 02/06/19 Unknown History Rivastigmine [Rivastigmine Patch 1 each TD DAILY 02/06/19 02/06/19 Unknown History 13.3mg/24hr] Sertraline [Zoloft] 50 mg PO QAM 02/06/19 02/06/19 Unknown History Active Medications: Generic Name Dose Route Start Last Admin Trade Name Freq PRN Reason Stop Dose Admin Acetaminophen 650 mg 02/06/19 18:53 Tylenol PO Q4H PRN Pain MILD(1-3)/Fever >100.5/PÉREZ Lipase/Protease/Amylase 1 each 02/06/19 19:05 Pancremarkell Be 10,500 Unit FEEDTUBE PRN PRN For Clogged Feeding Tube Dextrose 0 ml 02/06/19 17:15 02/06/19 17:17 D50w (25gm) Syringe IV 50 ml ONCE PRN Administration Hypoglycemia Famotidine 10 mg 02/06/19 22:00 02/07/19 10:22 Pepcid IV 10 mg BID MALIK Administration Dextrose 1,000 mls @ 125 mls/hr 02/06/19 19:00 02/06/19 22:29 D5w IV 125 mls/hr DIRECT MALIK Administration Cefepime HCl 1 gm in 100 mls @ 200 mls/hr 02/06/19 21:00 02/07/19 00:31 Maxipime/Ns 1 Gm/100 Ml IV 200 mls/hr Q24H MALIK Administration Protocol Insulin Human Lispro 0 unit 02/07/19 07:00 02/07/19 06:46 Humalog SUB-Q Not Given Q6HR [facility] Protocol Miscellaneous Medication 1 each 02/07/19 10:00 Rivastigmine [Rivastigmine Patch 13.3mg/24hr] TD DAILY [facility] Morphine Sulfate 2 mg 02/06/19 18:53 02/06/19 22:28 Morphine IV 2 mg Q4H PRN Administration Pain, Moderate (4-6) Ondansetron HCl 4 mg 02/06/19 18:53 02/06/19 22:28 Zofran IV 4 mg Q8H PRN Administration Nausea And Vomiting Promethazine HCl 25 mg 02/06/19 18:53 Phenergan TN Q6H PRN N/V IF NPO AND NO IV ACCESS Simple Syrup 15 ml 02/06/19 19:05 Simple Syrup FEEDTUBE PRN PRN Hypoglycemia Simple Syrup 30 ml 02/06/19 19:05 Simple Syrup FEEDTUBE PRN PRN Hypoglycemia Sodium Bicarbonate 325 mg 02/06/19 19:05 Sodium Bicarbonate FEEDTUBE PRN PRN For Clogged Feeding Tube Sodium Chloride 10 ml 02/06/19 22:00 02/07/19 10:23 Sodium Chloride Flush Syringe 10 Ml IV 10 ml BID MALIK Administration Sodium Chloride 10 ml 02/06/19 18:53 Sodium Chloride Flush Syringe 10 Ml IV PRN PRN LINE FLUSH
[2019-02-07] MEDS ORDERED: ATROPINE IV PRN (14:30)
--- NOTE | 2019-02-07 15:25 | Consultation ---
History of Present Illness Consult date: 02/07/19 Requesting physician: MANE RIOS Consult reason: bradycardia History of present illness: The pt is a 78 year old male prison resident with a past medical history of HTN, DM, Alzheimer's dementia, former tobacco use. He is previously unknown to our practice. He is a poor historian due to dementia and thus HPI is obtained per the chart. He was sent from his prison for evaluation of alteration of mental status. Per the prison staff, the patient is normally confused but ambulatory. On the day of admission, pt was confused and non-ambulatory and not speaking as much as he usually does. Ultimately they decided to send him to the emergency department for evaluation of his altered mental status. Following arrival, he was noted to have acute renal failure, dehydration, hyperkalemia, lactic acidosis. He was also noted to have bradycardia and thus cardiology has been consulted. Review of telemetry shows sinus bradycardia with occasional PVCs, no pauses noted. On evaluation pt is in sinus bradycardia with HR in 50s, BPs currently low normal and stable. Past History Past Medical History: diabetes, hyperlipidemia, other (Alzheimer's dementia ) Past Surgical History: No surgical history Social history: smoking (former) Medications and Allergies Allergies Allergy/AdvReac Type Severity Reaction Status Date / Time No Known Allergies Allergy Verified 02/19/18 16:51 Home Medications Medication Instructions Recorded Confirmed Last Taken Type Acetaminophen [Tylenol] 650 mg PO Q4HR PRN 02/06/19 02/06/19 Unknown History Acetaminophen/Diphenhydramine 1 each PO Q8H 02/06/19 02/06/19 Unknown History [Tylenol Pm Ex-Strength Caplet] Aspirin [Adult Aspirin] 81 mg PO DAILY 02/06/19 02/06/19 Unknown History Atorvastatin [Lipitor Tab] 80 mg PO DAILY 02/06/19 02/06/19 Unknown History Dextrose [Glucose Gel] 38 gm PO Q15MIN 02/06/19 02/06/19 Unknown History Glucagon,Human Recombinant 1 mg IJ Q15MIN 02/06/19 02/06/19 Unknown History [Glucagon Emergency Kit] Insulin Regular, Human [HumuLIN R] 10 units IM DAILY 02/06/19 02/06/19 Unknown History Lisinopril [Zestril TAB] 40 mg PO DAILY 02/06/19 02/06/19 Unknown History Magnesium Hydroxide [Milk of 30 ml PO Q24H 02/06/19 02/06/19 Unknown History Magnesia] Melatonin [Melatonin 5MG CAP] 5 mg PO QHS 02/06/19 02/06/19 Unknown History Metoprolol [Lopressor TAB] 50 mg PO DAILY 02/06/19 02/06/19 Unknown History Nitroglycerin [Nitrostat] 0.4 mg SL Q5M PRN 02/06/19 02/06/19 Unknown History Polyethylene Glycol 3350 [Miralax 17 gm PO DAILY 02/06/19 02/06/19 Unknown History 3350] Ranitidine HCl [Zantac] 150 mg PO BID 02/06/19 02/06/19 Unknown History Rivastigmine [Rivastigmine Patch 1 each TD DAILY 02/06/19 02/06/19 Unknown History 13.3mg/24hr] Sertraline [Zoloft] 50 mg PO QAM 02/06/19 02/06/19 Unknown History Active Meds: Active Medications Acetaminophen (Tylenol) 650 mg PO Q4H PRN PRN Reason: Pain MILD(1-3)/Fever >100.5/PÉREZ Lipase/Protease/Amylase (Pancreaze Dr 10,500 Unit) 1 each FEEDTUBE PRN PRN PRN Reason: For Clogged Feeding Tube Atropine Sulfate (Atropine) 1 mg IV PRN PRN PRN Reason: Bradycardia Dextrose (D50w (25gm) Syringe) 0 ml IV ONCE PRN PRN Reason: Hypoglycemia Last Admin: 02/06/19 17:17 Dose: 50 ml Documented by: Famotidine (Pepcid) 10 mg IV BID MALIK Last Admin: 02/07/19 10:22 Dose: 10 mg Documented by: Dextrose (D5w) 1,000 mls @ 125 mls/hr IV DIRECT MALIK Last Admin: 02/06/19 22:29 Dose: 125 mls/hr Documented by: Cefepime HCl (Maxipime/Ns 1 Gm/100 Ml) 1 gm in 100 mls @ 200 mls/hr IV Q24H MALIK; Protocol Last Admin: 02/07/19 00:31 Dose: 200 mls/hr Documented by: Insulin Human Lispro (Humalog) 0 unit SUB-Q Q6HR [facility]; Protocol Last Admin: 02/07/19 06:46 Dose: Not Given Documented by: Miscellaneous Medication (Rivastigmine [Rivastigmine Patch 13.3mg/24hr]) 1 each TD DAILY [facility] Morphine Sulfate (Morphine) 2 mg IV Q4H PRN PRN Reason: Pain, Moderate (4-6) Last Admin: 02/06/19 22:28 Dose: 2 mg Documented by: Ondansetron HCl (Zofran) 4 mg IV Q8H PRN PRN Reason: Nausea And Vomiting Last Admin: 02/06/19 22:28 Dose: 4 mg Documented by: Promethazine HCl (Phenergan) 25 mg DE Q6H PRN PRN Reason: N/V IF NPO AND NO IV ACCESS Simple Syrup (Simple Syrup) 15 ml FEEDTUBE PRN PRN PRN Reason: Hypoglycemia Simple Syrup (Simple Syrup) 30 ml FEEDTUBE PRN PRN PRN Reason: Hypoglycemia Sodium Bicarbonate (Sodium Bicarbonate) 325 mg FEEDTUBE PRN PRN PRN Reason: For Clogged Feeding Tube Sodium Chloride (Sodium Chloride Flush Syringe 10 Ml) 10 ml IV BID [facility] Last Admin: 02/07/19 10:23 Dose: 10 ml Documented by: Sodium Chloride (Sodium Chloride Flush Syringe 10 Ml) 10 ml IV PRN PRN PRN Reason: LINE FLUSH Review of Systems ROS unobtainable: due to mental status Cardiovascular: no chest pain, no syncope, no lightheadedness, no shortness of breath, no dyspnea on exertion Physical Examination Vital Signs Pulse Resp BP Pulse Ox 77 16 111/90 98 02/06/19 12:22 02/06/19 12:22 02/06/19 12:22 02/06/19 12:22 General appearance: no acute distress HEENT: Positive: PERRL, Normocephaly, Mucus Membranes Moist Neck: Positive: neck supple, trachea midline Cardiac: Positive: Regular Rhythm, S1/S2, Bradycardia Lungs: Positive: Decreased Breath Sounds Neuro: Positive: Grossly Intact Abdomen: Negative: Tender Skin: Negative: Rash, Wound Musculoskeletal: No Pain Extremities: Absent: edema Results 02/07/19 04:56 02/07/19 04:56 Cardiac Enzymes 02/07/19 Range/Units 04:56 AST 23 (5-40) units/L CBC 02/07/19 Range/Units 04:56 WBC 8.5 (4.5-11.0) K/mm3 RBC 3.52 L (3.65-5.03) M/mm3 Hgb 10.2 L (11.8-15.2) gm/dl Hct 31.8 L D (35.5-45.6) % Plt Count 154 (140-440) K/mm3 Lymph # 2.1 (1.2-5.4) K/mm3 [place] # 0.6 (0.0-0.8) K/mm3 Eos # 0.1 (0.0-0.4) K/mm3 Baso # 0.0 (0.0-0.1) K/mm3 Comprehensive Metabolic Panel 02/06/19 02/07/19 Range/Units 20:05 04:56 Sodium 165 H* 164 H* (137-145) mmol/L Potassium 5.0 5.5 H (3.6-5.0) mmol/L Chloride 131.4 H 133.4 H (98-107) mmol/L Carbon Dioxide 16 L 17 L (22-30) mmol/L BUN 128 H 119 H (9-20) mg/dL Creatinine 5.4 H 4.5 H (0.8-1.5) mg/dL Glucose 59 L 107 H (75-100) mg/dL Calcium 8.6 7.8 L (8.4-10.2) mg/dL AST 23 (5-40) units/L ALT 25 (7-56) units/L Alkaline Phosphatase 62 (35-129) units/L Total Protein 6.3 (6.3-8.2) g/dL Albumin 3.2 L (3.9-5) g/dL - Imaging and Cardiology Echo: pending EKG: report reviewed, image reviewed EKG interpretations - Telemetry EKG Rhythm: Sinus Bradycardia - EKG Sinus rhythms and dysrhythmias: sinus bradycardia Assessment and Plan Pt in sinus bradycardia with occasional PVCs, no pauses noted. TSH WNL. Pt's h ome medication regimen includes toprol 50mg daily but he does not appear to have been given any AV akila blocking agents since admission. Cont to hold AV akila blocking agents. Obtain echo. Cont to monitor on telemetry. Suspect hyperkalemia is contributing to bradycardia. Electrolyte management per nephrology. The patient has been seen in conjunction with Dr. De La Fuente who agrees with the assessment and plan of care. - Patient Problems (1) Sinus bradycardia Current Visit: Yes Status: Acute (2) Altered mental status Current Visit: Yes Status: Acute (3) Acute renal failure Current Visit: Yes Status: Acute (4) Hyperkalemia Current Visit: Yes Status: Acute (5) Hypernatremia Current Visit: Yes Status: Acute (6) Lactic acidosis Current Visit: Yes Status: Acute (7) Diabetes Current Visit: Yes Status: Chronic (8) Alzheimer's dementia Current Visit: Yes Status: Chronic
[2019-02-07] MEDS ORDERED: SIMPLE SYRUP FEEDTUBE PRN ×4 (15:34→15:36)
[2019-02-07] MEDS ORDERED: PANCREAZE DR 10,500 UNIT FEEDTUBE PRN ×2 (15:34→15:36)
[2019-02-07] MEDS ORDERED: SODIUM BICARBONATE FEEDTUBE PRN ×2 (15:34→15:36)
--- NOTE | 2019-02-07 17:11 | Progress Note ---
History Interval history: Nurse called and reported that patient is bradycardic with heart rate ranging in 40s to 60s Mild dizziness patient is already confused, evaluated the patient, patient is awake and lethargic Noncommunicative, brother at the bedside, We'll check EKG, cardiology consult, when necessary atropine Echocardiogram, and closely monitor Hospitalist Physical - Constitutional Vitals: Temp Pulse Resp BP Pulse Ox 97.8 F 70 10 L 88/68 100 02/07/19 12:00 02/07/19 17:00 02/07/19 17:00 02/07/19 17:00 02/07/19 17:00 General appearance: Present: mild distress, well-nourished, other (Lethergic) Results - Labs CBC & Chem 7: 02/07/19 04:56 02/07/19 04:56 Labs: Laboratory Last Values WBC 8.5 K/mm3 (4.5-11.0) 02/07/19 04:56 RBC 3.52 M/mm3 (3.65-5.03) L 02/07/19 04:56 Hgb 10.2 gm/dl (11.8-15.2) L 02/07/19 04:56 Hct 31.8 % (35.5-45.6) L D 02/07/19 04:56 MCV 90 fl (84-94) 02/07/19 04:56 MCH 29 pg (28-32) 02/07/19 04:56 MCHC 32 % (32-34) 02/07/19 04:56 RDW 17.3 % (13.2-15.2) H 02/07/19 04:56 Plt Count 154 K/mm3 (140-440) 02/07/19 04:56 Lymph % (Auto) 24.6 % (13.4-35.0) 02/07/19 04:56 [place] % (Auto) 7.4 % (0.0-7.3) H 02/07/19 04:56 Eos % (Auto) 0.7 % (0.0-4.3) 02/07/19 04:56 Baso % (Auto) 0.3 % (0.0-1.8) 02/07/19 04:56 Lymph # 2.1 K/mm3 (1.2-5.4) 02/07/19 04:56 [place] # 0.6 K/mm3 (0.0-0.8) 02/07/19 04:56 Eos # 0.1 K/mm3 (0.0-0.4) 02/07/19 04:56 Baso # 0.0 K/mm3 (0.0-0.1) 02/07/19 04:56 Seg Neutrophils % 67.0 % (40.0-70.0) 02/07/19 04:56 Seg Neutrophils # 5.7 K/mm3 (1.8-7.7) 02/07/19 04:56 PT 16.1 Sec. (12.2-14.9) H 02/06/19 13:13 INR 1.21 (0.87-1.13) H 02/06/19 13:13 APTT 31.1 Sec. (24.2-36.6) 02/06/19 13:13 Sodium 164 mmol/L (137-145) H* 02/07/19 04:56 Potassium 5.5 mmol/L (3.6-5.0) H 02/07/19 04:56 Chloride 133.4 mmol/L (98-107) H 02/07/19 04:56 Carbon Dioxide 17 mmol/L (22-30) L 02/07/19 04:56 18 mmol/L 02/07/19 04:56 BUN 119 mg/dL (9-20) H 02/07/19 04:56 4.5 mg/dL (0.8-1.5) H 02/07/19 04:56 Estimated GFR 15 ml/min 02/07/19 04:56 26 % 02/07/19 04:56 Glucose 107 mg/dL (75-100) H 02/07/19 04:56 POC Glucose 121 (70-105) H 02/07/19 06:51 6.8 % (4-6) H 02/06/19 20:05 Lactic Acid 2.90 mmol/L (0.7-2.0) H* 02/06/19 21:21 Calcium 7.8 mg/dL (8.4-10.2) L 02/07/19 04:56 0.20 mg/dL (0.1-1.2) 02/07/19 04:56 < 0.2 mg/dL (0-0.2) 02/06/19 13:13 0.0 mg/dL 02/06/19 13:13 AST 23 units/L (5-40) 02/07/19 04:56 ALT 25 units/L (7-56) 02/07/19 04:56 62 units/L (35-129) 02/07/19 04:56 28.0 umol/L (25-60) 02/06/19 13:13 698 units/L (55-170) H 02/06/19 13:13 0.027 ng/mL (0.00-0.029) 02/06/19 13:13 6.3 g/dL (6.3-8.2) 02/07/19 04:56 3.2 g/dL (3.9-5) L 02/07/19 04:56 1.0 % 02/07/19 04:56 TSH 0.644 mlU/mL (0.270-4.200) 02/06/19 13:13 Yellow (Yellow) 02/06/19 15:22 Clear (Clear) 02/06/19 15:22 5.0 (5.0-7.0) 02/06/19 15:22 Ur Specific [place] 1.019 (1.003-1.030) 02/06/19 15:22 <15 mg/dl mg/dL (Negative) 02/06/19 15:22 Neg mg/dL (Negative) 02/06/19 15:22 Neg mg/dL (Negative) 02/06/19 15:22 Neg (Negative) 02/06/19 15:22 Neg (Negative) 02/06/19 15:22 Neg (Negative) 02/06/19 15:22 < 2.0 mg/dL (<2.0) 02/06/19 15:22 Ur Leukocyte Esterase Neg (Negative) 02/06/19 15:22 1.0 /HPF (0.0-6.0) 02/06/19 15:22 < 1.0 /HPF (0.0-6.0) 02/06/19 15:22 Hyaline Casts 9 /LPF 02/06/19 15:22 Blood Type O POSITIVE 02/06/19 13:13 Antibody Screen Negative 02/06/19 13:13 Active Medications - Current Medications Current Medications: Generic Name Dose Route Start Last Admin Trade Name Freq PRN Reason Stop Dose Admin Acetaminophen 650 mg 02/06/19 18:53 Tylenol PO Q4H PRN Pain MILD(1-3)/Fever >100.5/PÉREZ Lipase/Protease/Amylase 1 each 02/07/19 15:36 Pancreaze 10,500 Unit FEEDTUBE PRN PRN For Clogged Feeding Tube Atropine Sulfate 1 mg 02/07/19 14:30 Atropine IV PRN PRN Bradycardia Dextrose 0 ml 02/06/19 17:15 02/06/19 17:17 D50w (25gm) Syringe IV 50 ml ONCE PRN Administration Hypoglycemia Famotidine 10 mg 02/06/19 22:00 02/07/19 10:22 Pepcid IV 10 mg BID MALIK Administration Dextrose 1,000 mls @ 125 mls/hr 02/06/19 19:00 02/06/19 22:29 D5w IV 125 mls/hr DIRECT MALIK Administration Cefepime HCl 1 gm in 100 mls @ 200 mls/hr 02/06/19 21:00 02/07/19 00:31 Maxipime/Ns 1 Gm/100 Ml IV 200 mls/hr Q24H MALIK Administration Protocol Insulin Human Lispro 0 unit 02/07/19 07:00 02/07/19 12:00 Humalog SUB-Q Not Given Q6HR MALIK Protocol Miscellaneous Medication 1 each 02/07/19 10:00 Rivastigmine [Rivastigmine Patch 13.3mg/24hr] TD DAILY [facility] Morphine Sulfate 2 mg 02/06/19 18:53 02/06/19 22:28 Morphine IV 2 mg Q4H PRN Administration Pain, Moderate (4-6) Ondansetron HCl 4 mg 02/06/19 18:53 02/06/19 22:28 Zofran IV 4 mg Q8H PRN Administration Nausea And Vomiting Promethazine HCl 25 mg 02/06/19 18:53 Phenergan OR Q6H PRN N/V IF NPO AND NO IV ACCESS Simple Syrup 15 ml 02/07/19 15:36 Simple Syrup FEEDTUBE PRN PRN Hypoglycemia Simple Syrup 30 ml 02/07/19 15:36 Simple Syrup FEEDTUBE PRN PRN Hypoglycemia Sodium Bicarbonate 325 mg 02/07/19 15:36 Sodium Bicarbonate FEEDTUBE PRN PRN For Clogged Feeding Tube Sodium Chloride 10 ml 02/06/19 22:00 02/07/19 10:23 Sodium Chloride Flush Syringe 10 Ml IV 10 ml BID MALIK Administration Sodium Chloride 10 ml 02/06/19 18:53 Sodium Chloride Flush Syringe 10 Ml IV PRN PRN LINE FLUSH Nutrition/Malnutrition Assess - Dietary Evaluation Nutrition/Malnutrition Findings: Nutrition Notes Start: 02/07/19 15:17 Freq: Status: Active Protocol: Document 02/07/19 15:22 RM (Rec: 02/07/19 15:34 RM [id number]) Nutrition Notes Need for Assessment generated from: MD Order Initial or Follow up Assessment Current Diagnosis Acute Kidney Injury,Diabetes, Hypertension,Heart Failure, Hyperlipidemia Other Pertinent Diagnosis Dementia, Acute encephalopathy Current Diet TF (blank) Labs/Tests K 5.5 Na 164 Pertinent Medications Reviewed Height 5 ft 6 in Weight 58.96 kg [place] Body Weight (kg) 64.54 BMI 20.9 Subjective/Other Information Consulted for nutrition recommendations and TF recommendation. Pt from [place]. Burn Absent Trauma Absent #1 Nutrition Diagnosis Inadequate oral intake Etiology dementia, encephalopathy As Evidenced by Signs and Symptoms consult for TF recommendation Is patient on ventilator? No Is Patient Ambulatory and/or Out of Bed No REE-([facility]-confined to bed) 1515.582 Calculation Used for Recommendations [facility] Additional Notes Protein Needs: 59-77g (1-1.3g/ kg) Fluid Needs: 1 ml/kcal Nutrition Intervention Nutrition Support: Nepro at 35 ml/hr. Water flush of 250 mls q 4 hrs or per MD until hypernatremia resolves. Water flush of 150 mls q 4 hrs once hypernatremia resolves. Kcal 1,512 Protein (gm) 68 Fluid (mL) 611 Goal #1 TF tolerance Goal #2 Meet at least 75% of calorie and protein needs via TF Anticipated Discharge Needs: Unable to determine at this time Follow-Up By: 02/10/19 Additional Comments Follow for TF tolerance, Na and K labs
--- NOTE | 2019-02-07 17:14 | XRay Report ---
PROCEDURE: XR ABDOMEN 1V AP TECHNIQUE: Abdominal radiograph, single view. HISTORY: Confirm NGT placement COMPARISONS: February 07 at 2:24 AM. FINDINGS: Dobbhoff tube in the stomach with the distal end directed towards the gastric fundus. Bowel gas pattern in the upper abdomen is nonspecific. IMPRESSION: Dobbhoff tube in the stomach. This document is electronically signed by Leighton Adler MD., February 07 2019 05:12:24 PM ET
--- NOTE | 2019-02-07 18:57 | XRay Report ---
PROCEDURE: XR ABDOMEN 1V AP TECHNIQUE: Abdominal radiograph, single view. HISTORY: Confirm Dobhoff COMPARISONS: X-ray abdomen performed earlier today at 4:34 PM . FINDINGS: The tip of the Dobbhoff catheter is projected in the region of the stomach. The bowel gas pattern is nonspecific with mildly distended air-filled loops of small bowel and colon. IMPRESSION: 1. Dobbhoff catheter tip projected in the region of the stomach. This document is electronically signed by Anna Richey MD., February 07 2019 06:55:34 PM ET
[2019-02-07] MEDS: D5W 1,000 ML IV SCH (23:16)
[2019-02-08] MEDS: HumaLOG SUB-Q SCH (03:30)
[2019-02-08 05:44] LABS: Basophils % (Auto) 0.5 % (0.0-1.8); Eosinophils # (Auto) 0.2 K/mm3 (0.0-0.4); Eosinophils % (Auto) 2.9 % (0.0-4.3); Hematocrit 29.1 % (35.5-45.6); Hemoglobin 9.5 gm/dl (11.8-15.2); Lymphocytes # (Auto) 2.3 K/mm3 (1.2-5.4); Lymphocytes % (Auto) 34.3 % (13.4-35.0); Mean Corpuscular HGB Conc 33 % (32-34); Mean Corpuscular Volume 89 fl (84-94); Monocytes # (Auto) 0.5 K/mm3 (0.0-0.8); Monocytes % (Auto) 7.9 % (0.0-7.3); Platelet Count 143 K/mm3 (140-440); Red Blood Count 3.26 M/mm3 (3.65-5.03); Red Cell Distribution Width 17.5 % (13.2-15.2)
[2019-02-08 06:08] LABS: Calcium 7.8 mg/dL (8.4-10.2)
[2019-02-08] MEDS: PEPCID IV SCH ×2 (09:45→21:08)
[2019-02-08] MEDS: SODIUM CHLORIDE FLUSH SYRINGE 10 ML IV SCH ×2 (09:48→21:08)
--- NOTE | 2019-02-08 10:36 | Progress Note ---
Assessment and Plan Assessment and plan: -- Acute encephalopathy Multifactorial ,dehydration and acute kidney injury, electrolyte abnormalities Mild improvement --Bradycardia improved --Lactic acidosis /possible Sepsis Empiric antibiotics , follow cultures Patient started on IV vancomycin and IV cefepime -- Hyperkalemia Significant improvement closely monitor electrolytes --Hypernatremia: Trending down Free water flushes, D5W, monitor sodium levels -- Acute kidney injury Vasomotor nephropathy , nephrology following Gentle hydration, avoid nephrotoxins --Hypotension/possible septic shock Significant improvement IV fluids and IV antibiotics, Lactic acid trending down --History of Hypertension We will hold antihypertensives due to hypotension -- Insulin dependent diabetes mellitus Accu-Chek sliding scale coverage and ADA diet ,long-acting insulin As needed, Check hemoglobin A1c 6.8 -- Hyperlipidemia We will hold the statins for now -- Vascular dementia: Continue Exelon patch --H/O Depression As patient confused and hold Zoloft -- DVT prophylaxis Heparin renal dose --Full code status Monitor the patient closely and adjust management as needed Plan of care is reviewed with the patient's nurse History Interval history: Patient seen and examined medical records reviewed Patient feels better confused Heart rate significantly improved Vital signs noted Hospitalist Physical - Constitutional Vitals: Temp Pulse Resp BP Pulse Ox 98.1 F 66 10 L 108/33 96 02/08/19 07:27 02/08/19 09:00 02/08/19 09:00 02/08/19 09:00 02/08/19 04:00 General appearance: Present: no acute distress, well-nourished, other (confused) - EENT Eyes: Present: PERRL, EOM intact - Neck Neck: Present: supple, normal ROM - Respiratory Respiratory effort: normal Respiratory: bilateral: diminished, negative: rales, rhonchi, wheezing - Cardiovascular Rhythm: regular Heart Sounds: Present: S1 & S2 - Extremities Extremities: no ischemia, No edema - Abdominal General gastrointestinal: soft, non-tender, non-distended, normal bowel sounds - Integumentary Integumentary: Present: clear, warm - Psychiatric Psychiatric: agitated (at times), other (confused) - Neurologic Neurologic: moves all extremities Results - Labs CBC & Chem 7: 02/08/19 04:37 02/08/19 04:37 Labs: Laboratory Last Values WBC 6.7 K/mm3 (4.5-11.0) 02/08/19 04:37 RBC 3.26 M/mm3 (3.65-5.03) L 02/08/19 04:37 Hgb 9.5 gm/dl (11.8-15.2) L 02/08/19 04:37 Hct 29.1 % (35.5-45.6) L 02/08/19 04:37 MCV 89 fl (84-94) 02/08/19 04:37 MCH 29 pg (28-32) 02/08/19 04:37 MCHC 33 % (32-34) 02/08/19 04:37 RDW 17.5 % (13.2-15.2) H 02/08/19 04:37 Plt Count 143 K/mm3 (140-440) 02/08/19 04:37 Lymph % (Auto) 34.3 % (13.4-35.0) 02/08/19 04:37 [place] % (Auto) 7.9 % (0.0-7.3) H 02/08/19 04:37 Eos % (Auto) 2.9 % (0.0-4.3) 02/08/19 04:37 Baso % (Auto) 0.5 % (0.0-1.8) 02/08/19 04:37 Lymph # 2.3 K/mm3 (1.2-5.4) 02/08/19 04:37 [place] # 0.5 K/mm3 (0.0-0.8) 02/08/19 04:37 Eos # 0.2 K/mm3 (0.0-0.4) 02/08/19 04:37 Baso # 0.0 K/mm3 (0.0-0.1) 02/08/19 04:37 Seg Neutrophils % 54.4 % (40.0-70.0) 02/08/19 04:37 Seg Neutrophils # 3.6 K/mm3 (1.8-7.7) 02/08/19 04:37 PT 16.1 Sec. (12.2-14.9) H 02/06/19 13:13 INR 1.21 (0.87-1.13) H 02/06/19 13:13 APTT 31.1 Sec. (24.2-36.6) 02/06/19 13:13 Sodium 154 mmol/L (137-145) H 02/08/19 04:37 Potassium 5.2 mmol/L (3.6-5.0) H 02/08/19 04:37 Chloride 123.1 mmol/L (98-107) H 02/08/19 04:37 Carbon Dioxide 20 mmol/L (22-30) L 02/08/19 04:37 16 mmol/L 02/08/19 04:37 BUN 78 mg/dL (9-20) H 02/08/19 04:37 2.6 mg/dL (0.8-1.5) H 02/08/19 04:37 Estimated GFR 29 ml/min 02/08/19 04:37 30 % 02/08/19 04:37 Glucose 100 mg/dL (75-100) 02/08/19 04:37 POC Glucose 103 (70-105) 02/08/19 06:25 6.8 % (4-6) H 02/06/19 20:05 Lactic Acid 2.90 mmol/L (0.7-2.0) H* 02/06/19 21:21 Calcium 7.8 mg/dL (8.4-10.2) L 02/08/19 04:37 Magnesium 2.10 mg/dL (1.7-2.3) 02/08/19 00:13 0.20 mg/dL (0.1-1.2) 02/07/19 04:56 < 0.2 mg/dL (0-0.2) 02/06/19 13:13 0.0 mg/dL 02/06/19 13:13 AST 23 units/L (5-40) 02/07/19 04:56 ALT 25 units/L (7-56) 02/07/19 04:56 62 units/L (35-129) 02/07/19 04:56 28.0 umol/L (25-60) 02/06/19 13:13 698 units/L (55-170) H 02/06/19 13:13 0.027 ng/mL (0.00-0.029) 02/06/19 13:13 6.3 g/dL (6.3-8.2) 02/07/19 04:56 3.2 g/dL (3.9-5) L 02/07/19 04:56 1.0 % 02/07/19 04:56 TSH 0.644 mlU/mL (0.270-4.200) 02/06/19 13:13 Yellow (Yellow) 02/06/19 15:22 Clear (Clear) 02/06/19 15:22 5.0 (5.0-7.0) 02/06/19 15:22 Ur Specific [place] 1.019 (1.003-1.030) 02/06/19 15:22 <15 mg/dl mg/dL (Negative) 02/06/19 15:22 Neg mg/dL (Negative) 02/06/19 15:22 Neg mg/dL (Negative) 02/06/19 15:22 Neg (Negative) 02/06/19 15:22 Neg (Negative) 02/06/19 15:22 Neg (Negative) 02/06/19 15:22 < 2.0 mg/dL (<2.0) 02/06/19 15:22 Ur Leukocyte Esterase Neg (Negative) 02/06/19 15:22 1.0 /HPF (0.0-6.0) 02/06/19 15:22 < 1.0 /HPF (0.0-6.0) 02/06/19 15:22 Hyaline Casts 9 /LPF 02/06/19 15:22 Random Vancomycin 7.5 ug/mL (0-40.0) 02/08/19 04:37 Blood Type O POSITIVE 02/06/19 13:13 Antibody Screen Negative 02/06/19 13:13 Active Medications - Current Medications Current Medications: Generic Name Dose Route Start Last Admin Trade Name Freq PRN Reason Stop Dose Admin Acetaminophen 650 mg 02/06/19 18:53 Tylenol PO Q4H PRN Pain MILD(1-3)/Fever >100.5/PÉREZ Lipase/Protease/Amylase 1 each 02/07/19 15:36 Pancreaze 10,500 Unit FEEDTUBE PRN PRN For Clogged Feeding Tube Atropine Sulfate 1 mg 02/07/19 14:30 Atropine IV PRN PRN Bradycardia Dextrose 0 ml 02/06/19 17:15 02/06/19 17:17 D50w (25gm) Syringe IV 50 ml ONCE PRN Administration Hypoglycemia Famotidine 10 mg 02/06/19 22:00 02/08/19 09:45 Pepcid IV 10 mg BID MALIK Administration Dextrose 1,000 mls @ 125 mls/hr 02/06/19 19:00 02/07/19 23:16 D5w IV 125 mls/hr DIRECT MALIK Administration Cefepime HCl 1 gm in 100 mls @ 200 mls/hr 02/06/19 21:00 02/07/19 23:15 Maxipime/Ns 1 Gm/100 Ml IV 200 mls/hr Q24H MALIK Administration Protocol Insulin Human Lispro 0 unit 02/07/19 07:00 02/08/19 03:30 Humalog SUB-Q Not Given Q6HR [facility] Protocol Miscellaneous Medication 1 each 02/07/19 10:00 Rivastigmine [Rivastigmine Patch 13.3mg/24hr] TD DAILY MALIK Morphine Sulfate 2 mg 02/06/19 18:53 02/06/19 22:28 Morphine IV 2 mg Q4H PRN Administration Pain, Moderate (4-6) Ondansetron HCl 4 mg 02/06/19 18:53 02/06/19 22:28 Zofran IV 4 mg Q8H PRN Administration Nausea And Vomiting Promethazine HCl 25 mg 02/06/19 18:53 Phenergan DC Q6H PRN N/V IF NPO AND NO IV ACCESS Simple Syrup 15 ml 02/07/19 15:36 Simple Syrup FEEDTUBE PRN PRN Hypoglycemia Simple Syrup 30 ml 02/07/19 15:36 Simple Syrup FEEDTUBE PRN PRN Hypoglycemia Sodium Bicarbonate 325 mg 02/07/19 15:36 Sodium Bicarbonate FEEDTUBE PRN PRN For Clogged Feeding Tube Sodium Chloride 10 ml 02/06/19 22:00 02/08/19 09:48 Sodium Chloride Flush Syringe 10 Ml IV 10 ml BID MALIK Administration Sodium Chloride 10 ml 02/06/19 18:53 Sodium Chloride Flush Syringe 10 Ml IV PRN PRN LINE FLUSH Nutrition/Malnutrition Assess - Dietary Evaluation Nutrition/Malnutrition Findings: Nutrition Notes Start: 02/07/19 15:17 Freq: Status: Active Protocol: Document 02/07/19 15:22 RM (Rec: 02/07/19 15:34 RM [id number]) Nutrition Notes Need for Assessment generated from: MD Order Initial or Follow up Assessment Current Diagnosis Acute Kidney Injury,Diabetes, Hypertension,Heart Failure, Hyperlipidemia Other Pertinent Diagnosis Dementia, Acute encephalopathy Current Diet TF (blank) Labs/Tests K 5.5 Na 164 Pertinent Medications Reviewed Height 5 ft 6 in Weight 58.96 kg [place] Body Weight (kg) 64.54 BMI 20.9 Subjective/Other Information Consulted for nutrition recommendations and TF recommendation. Pt from NH. Burn Absent Trauma Absent #1 Nutrition Diagnosis Inadequate oral intake Etiology dementia, encephalopathy As Evidenced by Signs and Symptoms consult for TF recommendation Is patient on ventilator? No Is Patient Ambulatory and/or Out of Bed No REE-([facility]-confined to bed) 1517.504 Calculation Used for Recommendations [facility] Additional Notes Protein Needs: 59-77g (1-1.3g/ kg) Fluid Needs: 1 ml/kcal Nutrition Intervention Nutrition Support: Nepro at 35 ml/hr. Water flush of 250 mls q 4 hrs or per MD until hypernatremia resolves. Water flush of 150 mls q 4 hrs once hypernatremia resolves. Kcal 1,512 Protein (gm) 68 Fluid (mL) 611 Goal #1 TF tolerance Goal #2 Meet at least 75% of calorie and protein needs via TF Anticipated Discharge Needs: Unable to determine at this time Follow-Up By: 02/10/19 Additional Comments Follow for TF tolerance, Na and K labs
--- NOTE | 2019-02-08 11:56 | Progress Note ---
Assessment and Plan Patient remains hypernatremic and hyperkalemic with an elevated creatinine. Continue IVF. Patient has been seen in conjunction with Dr. De La Fuente, who agrees with assessment and plan. - Patient Problems (1) Sinus bradycardia Current Visit: Yes Status: Resolved (2) Acute renal failure Current Visit: Yes Status: Acute (3) Altered mental status Current Visit: Yes Status: Acute (4) Hyperkalemia Current Visit: Yes Status: Acute (5) Hypernatremia Current Visit: Yes Status: Acute (6) Lactic acidosis Current Visit: Yes Status: Acute (7) Alzheimer's dementia Current Visit: Yes Status: Chronic (8) Diabetes Current Visit: Yes Status: Chronic Subjective Date of service: 02/08/19 Interval history: Patient lying in bed in no acute distress. Per RN, he remains confused. Objective Last Vital Signs Temp 98.1 F 02/08/19 07:27 Pulse 66 02/08/19 09:00 Resp 10 L 02/08/19 09:00 BP 108/33 02/08/19 09:00 Pulse Ox 96 02/08/19 04:00 - Physical Examination General: No Apparent Distress HEENT: Positive: PERRL, Normocephaly, Mucus Membranes Moist Neck: Positive: neck supple, trachea midline Cardiac: Positive: Reg Rate and Rhythm Lungs: Positive: clear to auscultation (Confused ) Neuro: Positive: Grossly Intact, Other Abdomen: Positive: Unremarkable. Negative: Tender Skin: Negative: Rash, Wound Musculoskeletal: Normal Range of Motion Extremities: Present: normal. Absent: edema - Labs and Meds CBC 02/08/19 Range/Units 04:37 WBC 6.7 (4.5-11.0) K/mm3 RBC 3.26 L (3.65-5.03) M/mm3 Hgb 9.5 L (11.8-15.2) gm/dl Hct 29.1 L (35.5-45.6) % Plt Count 143 (140-440) K/mm3 Lymph # 2.3 (1.2-5.4) K/mm3 [place] # 0.5 (0.0-0.8) K/mm3 Eos # 0.2 (0.0-0.4) K/mm3 Baso # 0.0 (0.0-0.1) K/mm3 Comprehensive Metabolic Panel 02/07/19 02/08/19 02/08/19 Range/Units 22:51 00:13 04:37 Sodium 152 H D 153 H 154 H (137-145) mmol/L Potassium 5.0 5.2 H (3.6-5.0) mmol/L Chloride 125.0 H 123.1 H (98-107) mmol/L Carbon Dioxide 17 L 20 L (22-30) mmol/L BUN 86 H 78 H (9-20) mg/dL Creatinine 2.9 H 2.6 H (0.8-1.5) mg/dL Glucose 128 H 100 (75-100) mg/dL Calcium 8.0 L 7.8 L (8.4-10.2) mg/dL - Imaging and Cardiology EKG: report reviewed, image reviewed Echo: pending - Telemetry EKG Rhythm: Sinus Rhythm - EKG Sinus rhythms and dysrhythmias: sinus bradycardia
[2019-02-08] MEDS ORDERED: VANCOMYCIN 1,250 MG in NACL 0.9% 250ML 250 ML IV ONE (15:00)
[2019-02-08 16:50] LABS: Calcium 7.8 mg/dL (8.4-10.2)
--- NOTE | 2019-02-08 18:48 | Progress Note ---
Assessment and Plan Impression: * Nonoliguric acute kidney injury secondary to dehydration * Hypernatremia - improved * Hyperkalemia - improved * Azotemia * Encephalopathy - improved * Alzheimer's dementia Plan: * Renal function continues to improve w/ conservative management * Continue D5W IV and free water via NGT * Medical management of electrolytes * Abx per primary team * Strict I/O * Dose medications for renal funtion * Avoid potential nephrotoxins * AM labs * Niece at bedside - updated Subjective Date of service: 02/08/19 Interval history: No acute events overnight. Objective - Vital Signs Vital signs: Vital Signs - 12hr 02/08/19 02/08/19 02/08/19 07:00 07:27 08:00 Temperature 98.1 F Pulse Rate 75 83 Respiratory 16 12 Rate Blood Pressure 111/37 110/31 02/08/19 02/08/19 02/08/19 09:00 11:56 15:00 Temperature 98.6 F 98.8 F Pulse Rate 66 Respiratory 10 L Rate Blood Pressure 108/33 - General Appearance General appearance: well-developed, well-nourished EENT: ATNC Respiratory: Present: Clear to Ascultation Cardiology: regular, S1S2 Gastrointestinal: normal, no tenderness, no distended Integumentary: warm and dry Musculoskeletal: other (no edema) Psychiatric: cooperative - Lab 02/08/19 04:37 02/08/19 15:46 Most recent lab results Calcium 7.8 mg/dL (8.4-10.2) L 02/08/19 15:46 Magnesium 2.10 mg/dL (1.7-2.3) 02/08/19 00:13 Medications & Allergies - Medications Allergies/Adverse Reactions: Allergies No Known Allergies Allergy (Verified 02/19/18 16:51) Home Medications: Home Medications Medication Instructions Recorded Confirmed Last Taken Type Acetaminophen [Tylenol] 650 mg PO Q4HR PRN 02/06/19 02/06/19 Unknown History Acetaminophen/Diphenhydramine 1 each PO Q8H 02/06/19 02/06/19 Unknown History [Tylenol Pm Ex-Strength Caplet] Aspirin [Adult Aspirin] 81 mg PO DAILY 02/06/19 02/06/19 Unknown History Atorvastatin [Lipitor Tab] 80 mg PO DAILY 02/06/19 02/06/19 Unknown History Dextrose [Glucose Gel] 38 gm PO Q15MIN 02/06/19 02/06/19 Unknown History Glucagon,Human Recombinant 1 mg IJ Q15MIN 02/06/19 02/06/19 Unknown History [Glucagon Emergency Kit] Insulin Regular, Human [HumuLIN R] 10 units IM DAILY 02/06/19 02/06/19 Unknown History Lisinopril [Zestril TAB] 40 mg PO DAILY 02/06/19 02/06/19 Unknown History Magnesium Hydroxide [Milk of 30 ml PO Q24H 02/06/19 02/06/19 Unknown History Magnesia] Melatonin [Melatonin 5MG CAP] 5 mg PO QHS 02/06/19 02/06/19 Unknown History Metoprolol [Lopressor TAB] 50 mg PO DAILY 02/06/19 02/06/19 Unknown History Nitroglycerin [Nitrostat] 0.4 mg SL Q5M PRN 02/06/19 02/06/19 Unknown History Polyethylene Glycol 3350 [Miralax 17 gm PO DAILY 02/06/19 02/06/19 Unknown History 3350] Ranitidine HCl [Zantac] 150 mg PO BID 02/06/19 02/06/19 Unknown History Rivastigmine [Rivastigmine Patch 1 each TD DAILY 02/06/19 02/06/19 Unknown History 13.3mg/24hr] Sertraline [Zoloft] 50 mg PO QAM 02/06/19 02/06/19 Unknown History Active Medications: Generic Name Dose Route Start Last Admin Trade Name Freq PRN Reason Stop Dose Admin Acetaminophen 650 mg 02/06/19 18:53 Tylenol PO Q4H PRN Pain MILD(1-3)/Fever >100.5/PÉREZ Lipase/Protease/Amylase 1 each 02/07/19 15:36 Pancremarkell Be 10,500 Unit FEEDTUBE PRN PRN For Clogged Feeding Tube Atropine Sulfate 1 mg 02/07/19 14:30 Atropine IV PRN PRN Bradycardia Dextrose 0 ml 02/06/19 17:15 02/06/19 17:17 D50w (25gm) Syringe IV 50 ml ONCE PRN Administration Hypoglycemia Famotidine 10 mg 02/06/19 22:00 02/08/19 09:45 Pepcid IV 10 mg BID MALIK Administration Dextrose 1,000 mls @ 125 mls/hr 02/06/19 19:00 02/07/19 23:16 D5w IV 125 mls/hr DIRECT MALIK Administration Cefepime HCl 1 gm in 100 mls @ 200 mls/hr 02/06/19 21:00 02/07/19 23:15 Maxipime/Ns 1 Gm/100 Ml IV 200 mls/hr Q24H MALIK Administration Protocol Insulin Human Lispro 0 unit 02/07/19 07:00 02/08/19 03:30 Humalog SUB-Q Not Given Q6HR [facility] Protocol Miscellaneous Medication 1 each 02/07/19 10:00 Rivastigmine [Rivastigmine Patch 13.3mg/24hr] TD DAILY MALIK Morphine Sulfate 2 mg 02/06/19 18:53 02/06/19 22:28 Morphine IV 2 mg Q4H PRN Administration Pain, Moderate (4-6) Ondansetron HCl 4 mg 02/06/19 18:53 02/06/19 22:28 Zofran IV 4 mg Q8H PRN Administration Nausea And Vomiting Promethazine HCl 25 mg 02/06/19 18:53 Phenergan AL Q6H PRN N/V IF NPO AND NO IV ACCESS Simple Syrup 15 ml 02/07/19 15:36 Simple Syrup FEEDTUBE PRN PRN Hypoglycemia Simple Syrup 30 ml 02/07/19 15:36 Simple Syrup FEEDTUBE PRN PRN Hypoglycemia Sodium Bicarbonate 325 mg 02/07/19 15:36 Sodium Bicarbonate FEEDTUBE PRN PRN For Clogged Feeding Tube Sodium Chloride 10 ml 02/06/19 22:00 02/08/19 09:48 Sodium Chloride Flush Syringe 10 Ml IV 10 ml BID MALIK Administration Sodium Chloride 10 ml 02/06/19 18:53 Sodium Chloride Flush Syringe 10 Ml IV PRN PRN LINE FLUSH
[2019-02-08] MEDS: TYLENOL PO PRN (21:07)
[2019-02-08] MEDS: MAXIPIME/NS 1 GM/100 ML 1 GM/100 ML BAG IV SCH (21:09)
[2019-02-09] MEDS: HumaLOG SUB-Q SCH ×3 (00:06→11:00)
[2019-02-09] MEDS: D5W 1,000 ML IV SCH ×2 (02:51→10:10)
[2019-02-09] MEDS: TYLENOL PO PRN (05:25)
[2019-02-09 06:05] LABS: Calcium 7.4 mg/dL (8.4-10.2)
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
[2019-02-09] MEDS: PEPCID IV SCH ×2 (10:10→21:34)
[2019-02-09] MEDS: SODIUM CHLORIDE FLUSH SYRINGE 10 ML IV SCH ×2 (10:14→21:34)
--- NOTE | 2019-02-09 10:17 | Progress Note ---
Assessment and Plan Continue IV fluids. Await echocardiogram. Stable cardiac status. - Patient Problems (1) Sinus bradycardia Current Visit: Yes Status: Resolved (2) Acute kidney injury Current Visit: Yes Status: Acute (3) Hyperkalemia Current Visit: Yes Status: Resolved (4) Hypernatremia Current Visit: Yes Status: Resolved (5) Dehydration Current Visit: Yes Status: Acute (6) Altered mental status Current Visit: Yes Status: Acute (7) Alzheimer's dementia Current Visit: Yes Status: Chronic (8) Diabetes Current Visit: Yes Status: Chronic Subjective Date of service: 02/09/19 Principal diagnosis: Sinus Bradycardia, Hyperkalemia, Hypernatremia, KEVIN, Dehydration, Dementia Interval history: Remains confused. Objective Vital Signs Temp Pulse Pulse Resp BP Pulse Ox 02/09/19 08:00 99.4 F 02/09/19 06:00 66 19 106/61 100 02/09/19 05:00 79 21 106/61 100 02/09/19 04:06 100.2 F H 02/09/19 04:00 78 82 19 106/61 99 02/09/19 03:00 85 21 112/61 99 02/09/19 02:00 88 18 112/61 97 02/09/19 01:00 72 20 112/61 98 02/09/19 00:02 75 13 112/61 99 02/09/19 00:00 69 69 19 112/61 99 02/08/19 23:00 64 17 122/57 100 02/08/19 22:03 97.8 F 02/08/19 22:00 66 15 122/57 98 02/08/19 21:00 74 17 167/53 98 02/08/19 20:28 99.4 F 02/08/19 20:00 80 76 16 167/53 97 02/08/19 19:00 81 12 138/60 02/08/19 18:00 76 12 121/55 02/08/19 17:00 80 16 121/55 02/08/19 16:00 58 L 13 108/57 02/08/19 15:00 98.8 F 70 13 108/54 02/08/19 14:00 84 15 104/62 02/08/19 13:00 82 10 L 109/41 02/08/19 12:00 72 13 95/54 02/08/19 11:56 98.6 F 02/08/19 11:00 61 14 95/54 - Physical Examination General: No Apparent Distress HEENT: Positive: EOMI, Normocephaly, Mucus Membranes Moist Neck: Positive: neck supple, trachea midline Cardiac: Positive: Reg Rate and Rhythm, S1/S2 Lungs: Positive: clear to auscultation Neuro: Positive: Grossly Intact, Other Abdomen: Positive: Soft, Active Bowel Sounds. Negative: Tender Skin: Positive: Clear. Negative: Rash Musculoskeletal: Normal Range of Motion Extremities: Present: normal. Absent: edema - Labs and Meds Comprehensive Metabolic Panel 02/08/19 02/08/19 02/09/19 Range/Units 15:46 23:46 05:17 Sodium 150 H 142 D 143 (137-145) mmol/L Potassium 4.4 4.0 (3.6-5.0) mmol/L Chloride 119.6 H 111.8 H (98-107) mmol/L Carbon Dioxide 18 L 18 L (22-30) mmol/L BUN 63 H 47 H (9-20) mg/dL Creatinine 2.1 H 1.8 H (0.8-1.5) mg/dL Glucose 114 H 126 H (75-100) mg/dL Calcium 7.8 L 7.4 L (8.4-10.2) mg/dL - Imaging and Cardiology EKG: image reviewed Echo: pending - Telemetry EKG Rhythm: Sinus Rhythm
--- NOTE | 2019-02-09 14:29 | Progress Note ---
Assessment and Plan Impression: * Nonoliguric acute kidney injury secondary to prerenal azotemia due to dehydration * Hypernatremia - resolved * Hyperkalemia - resolved * Azotemia * Encephalopathy - improved * Alzheimer's dementia Plan: * Renal function continues to improve w/ conservative management * Change IVF - D5W to 1/2 NS 100ml/hour * Medical management of electrolytes * Abx per primary team * Strict I/O * Dose medications for renal funtion * Avoid potential nephrotoxins * AM labs Subjective Date of service: 02/09/19 Principal diagnosis: Sinus Bradycardia, Hyperkalemia, Hypernatremia, KEVIN, D ehydration, Dementia Interval history: No acute events overnight. Objective - Vital Signs Vital signs: Vital Signs - 12hr 02/09/19 02/09/19 02/09/19 03:00 04:00 04:06 Temperature 100.2 F H Pulse Rate 85 78 Pulse Rate [ 82 From Monitor] Respiratory 21 19 Rate Blood Pressure 112/61 106/61 O2 Sat by Pulse 99 99 Oximetry 02/09/19 02/09/19 02/09/19 05:00 06:00 08:00 Temperature 99.4 F Pulse Rate 79 66 Pulse Rate [ 88 From Monitor] Respiratory 21 19 16 Rate Blood Pressure 106/61 106/61 O2 Sat by Pulse 100 100 100 Oximetry 02/09/19 12:00 Temperature 97.6 F Pulse Rate Pulse Rate [ From Monitor] Respiratory Rate Blood Pressure O2 Sat by Pulse Oximetry - General Appearance General appearance: well-developed, well-nourished EENT: ATNC Respiratory: Present: Clear to Ascultation Cardiology: regular, S1S2 Gastrointestinal: normal, no tenderness, no distended Musculoskeletal: other (no edema) Psychiatric: cooperative - Lab 02/08/19 04:37 02/09/19 14:52 Most recent lab results Calcium 7.4 mg/dL (8.4-10.2) L 02/09/19 05:17 Magnesium 2.10 mg/dL (1.7-2.3) 02/08/19 00:13 Medications & Allergies - Medications Allergies/Adverse Reactions: Allergies No Known Allergies Allergy (Verified 02/19/18 16:51) Home Medications: Home Medications Medication Instructions Recorded Confirmed Last Taken Type Acetaminophen [Tylenol] 650 mg PO Q4HR PRN 02/06/19 02/06/19 Unknown History Acetaminophen/Diphenhydramine 1 each PO Q8H 02/06/19 02/06/19 Unknown History [Tylenol Pm Ex-Strength Caplet] Aspirin [Adult Aspirin] 81 mg PO DAILY 02/06/19 02/06/19 Unknown History Atorvastatin [Lipitor Tab] 80 mg PO DAILY 02/06/19 02/06/19 Unknown History Dextrose [Glucose Gel] 38 gm PO Q15MIN 02/06/19 02/06/19 Unknown History Glucagon,Human Recombinant 1 mg IJ Q15MIN 02/06/19 02/06/19 Unknown History [Glucagon Emergency Kit] Insulin Regular, Human [HumuLIN R] 10 units IM DAILY 02/06/19 02/06/19 Unknown History Lisinopril [Zestril TAB] 40 mg PO DAILY 02/06/19 02/06/19 Unknown History Magnesium Hydroxide [Milk of 30 ml PO Q24H 02/06/19 02/06/19 Unknown History Magnesia] Melatonin [Melatonin 5MG CAP] 5 mg PO QHS 02/06/19 02/06/19 Unknown History Metoprolol [Lopressor TAB] 50 mg PO DAILY 02/06/19 02/06/19 Unknown History Nitroglycerin [Nitrostat] 0.4 mg SL Q5M PRN 02/06/19 02/06/19 Unknown History Polyethylene Glycol 3350 [Miralax 17 gm PO DAILY 02/06/19 02/06/19 Unknown History 3350] Ranitidine HCl [Zantac] 150 mg PO BID 02/06/19 02/06/19 Unknown History Rivastigmine [Rivastigmine Patch 1 each TD DAILY 02/06/19 02/06/19 Unknown History 13.3mg/24hr] Sertraline [Zoloft] 50 mg PO QAM 02/06/19 02/06/19 Unknown History Active Medications: Generic Name Dose Route Start Last Admin Trade Name Freq PRN Reason Stop Dose Admin Acetaminophen 650 mg 02/06/19 18:53 02/09/19 05:25 Tylenol PO 650 mg Q4H PRN Administration Pain MILD(1-3)/Fever >100.5/PÉREZ Lipase/Protease/Amylase 1 each 02/07/19 15:36 Pancremarkell Be 10,500 Unit FEEDTUBE PRN PRN For Clogged Feeding Tube Atropine Sulfate 1 mg 02/07/19 14:30 Atropine IV PRN PRN Bradycardia Dextrose 0 ml 02/06/19 17:15 02/06/19 17:17 D50w (25gm) Syringe IV 50 ml ONCE PRN Administration Hypoglycemia Famotidine 10 mg 02/06/19 22:00 02/09/19 10:10 Pepcid IV 10 mg BID MALIK Administration Dextrose 1,000 mls @ 125 mls/hr 02/06/19 19:00 02/09/19 10:10 D5w IV 125 mls/hr DIRECT MALIK Administration Cefepime HCl 1 gm in 100 mls @ 200 mls/hr 02/06/19 21:00 02/08/19 21:09 Maxipime/Ns 1 Gm/100 Ml IV 200 mls/hr Q24H MALIK Administration Protocol Insulin Human Lispro 0 unit 02/07/19 07:00 02/09/19 06:54 Humalog SUB-Q Not Given Q6HR [facility] Protocol Miscellaneous Medication 1 each 02/07/19 10:00 Rivastigmine [Rivastigmine Patch 13.3mg/24hr] TD DAILY MALIK Morphine Sulfate 2 mg 02/06/19 18:53 02/06/19 22:28 Morphine IV 2 mg Q4H PRN Administration Pain, Moderate (4-6) Ondansetron HCl 4 mg 02/06/19 18:53 02/06/19 22:28 Zofran IV 4 mg Q8H PRN Administration Nausea And Vomiting Promethazine HCl 25 mg 02/06/19 18:53 Phenergan [place] Q6H PRN N/V IF NPO AND NO IV ACCESS Simple Syrup 15 ml 02/07/19 15:36 Simple Syrup FEEDTUBE PRN PRN Hypoglycemia Simple Syrup 30 ml 02/07/19 15:36 Simple Syrup FEEDTUBE PRN PRN Hypoglycemia Sodium Bicarbonate 325 mg 02/07/19 15:36 Sodium Bicarbonate FEEDTUBE PRN PRN For Clogged Feeding Tube Sodium Chloride 10 ml 02/06/19 22:00 02/09/19 10:14 Sodium Chloride Flush Syringe 10 Ml IV Not Given BID MALIK Sodium Chloride 10 ml 02/06/19 18:53 Sodium Chloride Flush Syringe 10 Ml IV PRN PRN LINE FLUSH
[2019-02-09] MEDS: NACL 0.45% 1000 ML 1,000 ML IV SCH (15:30)
[2019-02-09] MEDS: MAXIPIME/NS 1 GM/100 ML 1 GM/100 ML BAG IV SCH (21:34)
[2019-02-10] MEDS: NACL 0.45% 1000 ML 1,000 ML IV SCH ×2 (00:55→11:02)
[2019-02-10] MEDS: HumaLOG SUB-Q SCH ×3 (00:55→12:00)
[2019-02-10 05:21] LABS: Calcium 7.8 mg/dL (8.4-10.2)
[2019-02-10] MEDS ORDERED: EXELON TD SCH (10:00)
--- NOTE | 2019-02-10 10:03 | Progress Note ---
Subjective Principal diagnosis: Sinus Bradycardia, Hyperkalemia, Hypernatremia, KEVIN, Dehydration, Dementia Interval history: Patient was seen today for follow-up on multiple renal related issues Events of this hospitalization noted Patient appears to be encephalopathic Resting comfortably in bed in no acute distress Vitals labs intake output medications were reviewed Social history: Reviewed Allergies: Reviewed Family history: Reviewed Physical examination HEENT: Oral mucosa moist no pallor or icterus Neck: Supple no JVD Chest: Clear to auscultation anteriorly CVS: Regular rate and rhythm S1 and S2 heard Abdomen: Soft nontender no suprapubic masses no organomegaly appreciable Extremity: Dry skin less than 1+ peripheral edema Musculoskeletal: No joint effusion noted in knees and ankle Dermatology: No petechial rashes Psychiatry: No evidence of any agitation and aggression noted Assessment and plan; Acute kidney injury likely due to dehydration prerenal as a team anemia possibly low-grade acute tubular necrosis from which patient is improving slowly maintain IV hydration and close monitoring of renal function avoidance of nephrotoxic medication Hypernatremia improving well, continue to monitor and follow Hyperkalemia currently resolved Mild metabolic acidosis patient will benefit with bicarbonate tablets, if able to take may benefit from outpatient evaluation, in the nephrology clinic health permitting Volume depletion as a team anemia maintain hydration patient does have history of Alzheimer's dementia strict intake and output should be monitored closely He'll be prone to these spells in future if his hydration status is not monitor closely Admitted here with bradycardia hyperkalemia hypernatremia acute kidney injury as well as dehydration with underlying history of dementia CT scan of the kidney was normal Since renal function has normalized would like to sign off the case Objective - Vital Signs Vital signs: Vital Signs - 12hr 02/10/19 02/10/19 02/10/19 00:00 00:27 00:35 Temperature 99.4 F Pulse Rate 79 81 Pulse Rate [ 79 From Monitor] Respiratory 13 18 Rate Blood Pressure 111/49 O2 Sat by Pulse 100 100 Oximetry 02/10/19 02/10/19 02/10/19 01:00 02:00 03:00 Temperature Pulse Rate 89 96 H 93 H Pulse Rate [ From Monitor] Respiratory 15 22 18 Rate Blood Pressure 111/49 111/49 111/49 O2 Sat by Pulse Oximetry 02/10/19 02/10/19 02/10/19 04:00 04:53 06:00 Temperature 98.9 F Pulse Rate 103 H 98 H 98 H Pulse Rate [ 98 H From Monitor] Respiratory 21 16 Rate Blood Pressure 111/49 129/62 O2 Sat by Pulse 100 Oximetry 02/10/19 02/10/19 02/10/19 07:00 08:00 09:00 Temperature 99.4 F Pulse Rate 92 H 95 H 78 Pulse Rate [ From Monitor] Respiratory 18 18 17 Rate Blood Pressure 129/62 135/66 135/66 O2 Sat by Pulse Oximetry - Lab 02/08/19 04:37 02/10/19 04:23 Most recent lab results Calcium 7.8 mg/dL (8.4-10.2) L 02/10/19 04:23 Magnesium 1.30 mg/dL (1.7-2.3) L 02/10/19 04:23 Medications & Allergies - Medications Allergies/Adverse Reactions: Allergies No Known Allergies Allergy (Verified 02/19/18 16:51) Home Medications: Home Medications Medication Instructions Recorded Confirmed Last Taken Type Acetaminophen [Acetaminophen TAB] 650 mg PO Q4HR PRN 02/06/19 02/06/19 Unknown History Acetaminophen/Diphenhydramine 1 each PO Q8H 02/06/19 02/06/19 Unknown History [Tylenol Pm Ex-Strength Caplet] Aspirin [Adult Aspirin] 81 mg PO DAILY 02/06/19 02/06/19 Unknown History Atorvastatin [Lipitor] 80 mg PO DAILY 02/06/19 02/06/19 Unknown History Dextrose [Glucose Gel] 38 gm PO Q15MIN 02/06/19 02/06/19 Unknown History Glucagon,Human Recombinant 1 mg IJ Q15MIN 02/06/19 02/06/19 Unknown History [Glucagon Emergency Kit] Insulin Regular, Human [HumuLIN R] 10 units IM DAILY 02/06/19 02/06/19 Unknown History Magnesium Hydroxide [Milk of 30 ml PO Q24H 02/06/19 02/06/19 Unknown History Magnesia] Melatonin [Melatonin 5MG CAP] 5 mg PO QHS 02/06/19 02/06/19 Unknown History Nitroglycerin [Nitrostat] 0.4 mg SL Q5M PRN 02/06/19 02/06/19 Unknown History Polyethylene Glycol 3350 [Miralax 17 gm PO DAILY 02/06/19 02/06/19 Unknown History 3350] Ranitidine HCl [Zantac] 150 mg PO BID 02/06/19 02/06/19 Unknown History Rivastigmine [Rivastigmine Patch 1 each TD DAILY 02/06/19 02/06/19 Unknown History 13.3mg/24hr] Sertraline [Zoloft] 50 mg PO QAM 02/06/19 02/06/19 Unknown History Carvedilol [Coreg] 3.125 mg PO BID tablet 02/10/19 Unknown Rx Furosemide [Lasix] 20 mg PO QDAY #30 tablet 02/10/19 Unknown Rx Lisinopril [Zestril TAB] 2.5 mg PO QDAY tablet 02/10/19 Unknown Rx Magnesium Oxide [Mag-Ox] 400 mg PO QDAY #14 tablet 02/10/19 Unknown Rx Active Medications: Generic Name Dose Route Start Last Admin Trade Name Freq PRN Reason Stop Dose Admin Acetaminophen 650 mg 02/06/19 18:53 02/09/19 05:25 Tylenol PO 650 mg Q4H PRN Administration Pain MILD(1-3)/Fever >100.5/PÉREZ Lipase/Protease/Amylase 1 each 02/07/19 15:[address] 10,500 Unit FEEDTUBE PRN PRN For Clogged Feeding Tube Atropine Sulfate 1 mg 02/07/19 14:30 Atropine IV PRN PRN Bradycardia Dextrose 0 ml 02/06/19 17:15 02/06/19 17:17 D50w (25gm) Syringe IV 50 ml ONCE PRN Administration Hypoglycemia Famotidine 10 mg 02/06/19 22:00 02/09/19 21:34 Pepcid IV 10 mg BID MALIK Administration Cefepime HCl 1 gm in 100 mls @ 200 mls/hr 02/06/19 21:00 02/09/19 21:34 Maxipime/Ns 1 Gm/100 Ml IV 200 mls/hr Q24H MALIK Administration Protocol Sodium Chloride 1,000 mls @ 100 mls/hr 02/09/19 15:00 02/10/19 00:55 Nacl 0.45% 1000 Ml IV 100 mls/hr DIRECT MALIK Administration Insulin Human Lispro 0 unit 02/07/19 07:00 02/10/19 07:25 Humalog SUB-Q Not Given Q6HR MALIK Protocol Morphine Sulfate 2 mg 02/06/19 18:53 02/06/19 22:28 Morphine IV 2 mg Q4H PRN Administration Pain, Moderate (4-6) Ondansetron HCl 4 mg 02/06/19 18:53 02/06/19 22:28 Zofran IV 4 mg Q8H PRN Administration Nausea And Vomiting Promethazine HCl 25 mg 02/06/19 18:53 Phenergan [place] Q6H PRN N/V IF NPO AND NO IV ACCESS Rivastigmine 4.6 mg 02/10/19 10:00 Exelon TD QDAY MALIK Simple Syrup 15 ml 02/07/19 15:36 Simple Syrup FEEDTUBE PRN PRN Hypoglycemia Simple Syrup 30 ml 02/07/19 15:36 Simple Syrup FEEDTUBE PRN PRN Hypoglycemia Sodium Bicarbonate 325 mg 02/07/19 15:36 Sodium Bicarbonate FEEDTUBE PRN PRN For Clogged Feeding Tube Sodium Chloride 10 ml 02/06/19 22:00 02/09/19 21:34 Sodium Chloride Flush Syringe 10 Ml IV 10 ml BID MALIK Administration Sodium Chloride 10 ml 02/06/19 18:53 Sodium Chloride Flush Syringe 10 Ml IV PRN PRN LINE FLUSH
[2019-02-10] MEDS: PEPCID IV SCH (10:54)
[2019-02-10] MEDS: SODIUM CHLORIDE FLUSH SYRINGE 10 ML IV SCH (10:54)
--- NOTE | 2019-02-10 13:47 | Progress Note ---
Assessment and Plan Echo reviewed - EF 20%, mod MR, mild TR. No current clinical evidence of acutely decompensated HF. Can consider stress test to r/o ischemic CMP once medically stabilized. Pt in SR. Cont to hold AV akila blocking agents. Replete Mg. Repeat BMP and Mg in AM. The patient has been seen in conjunction with Dr. Cotter who agrees with the as sessment and plan of care. - Patient Problems (1) Sinus bradycardia Current Visit: Yes Status: Resolved (2) Altered mental status Current Visit: Yes Status: Acute (3) Acute renal failure Current Visit: Yes Status: Acute (4) Hyperkalemia Current Visit: Yes Status: Resolved (5) Hypernatremia Current Visit: Yes Status: Resolved (6) Lactic acidosis Current Visit: Yes Status: Acute (7) Diabetes Current Visit: Yes Status: Chronic (8) Alzheimer's dementia Current Visit: Yes Status: Chronic Subjective Date of service: 02/10/19 Principal diagnosis: Sinus Bradycardia, Hyperkalemia, Hypernatremia, KEVIN, Dehydration, Dementia Interval history: pt resting in bed, lethargic, confused, no apparent distress. In SR HR 60s - 70s on tele. Objective Last Vital Signs Temp 99 F 02/10/19 12:00 Pulse 106 H 02/10/19 12:00 Resp 17 02/10/19 12:00 BP 107/49 02/10/19 12:00 Pulse Ox 100 02/10/19 12:00 - Physical Examination General: No Apparent Distress HEENT: Positive: EOMI, Normocephaly, Mucus Membranes Moist Neck: Positive: neck supple, trachea midline Cardiac: Positive: Reg Rate and Rhythm, S1/S2 Lungs: Positive: Decreased Breath Sounds Neuro: Positive: Grossly Intact, Other Abdomen: Positive: Soft, Active Bowel Sounds. Negative: Tender Skin: Positive: Clear. Negative: Rash Musculoskeletal: Normal Range of Motion Extremities: Present: normal. Absent: edema - Labs and Meds Comprehensive Metabolic Panel 02/09/19 02/10/19 Range/Units 14:52 04:23 Sodium 137 144 D (137-145) mmol/L Potassium 4.5 (3.6-5.0) mmol/L Chloride 113.2 H (98-107) mmol/L Carbon Dioxide 18 L (22-30) mmol/L BUN 32 H (9-20) mg/dL Creatinine 1.4 (0.8-1.5) mg/dL Glucose 108 H (75-100) mg/dL Calcium 7.8 L (8.4-10.2) mg/dL - Imaging and Cardiology EKG: image reviewed Echo: pending - EKG Sinus rhythms and dysrhythmias: sinus bradycardia
[2019-02-10] MEDS ORDERED: MAGNESIUM SULFATE 4GM/100ML 4 GM/100 ML BAG IV ONE (14:00)
--- NOTE | 2019-02-10 16:38 | Discharge Summary ---
Providers - Providers Date of Admission: 02/06/19 15:41 Date of discharge: 02/10/19 Attending physician: MANE RIOS 02/06/19 Consult to Case Management [CONS] Routine Services Needed at Discharge: Physician Office Assistant 02/06/19 14:41 Consult to Physician [CONS] Urgent Comment: DR DEBORAH FIELDS W/DR ROSA @[id number] Consulting Provider: ASHA PRUETT Physician Instructions: Reason For Exam: ARF and Electrolyte Derangement 02/06/19 18:56 Consult to Dietitian/Nutrition [CONS] Routine Physician Instructions: Reason For Exam: Dobbhoff tube feeding Reason for Consult: Nutrition Recommendations Reason for Consult: Write/Manage Tube Feeding 02/06/19 19:05 Consult to Dietitian/Nutrition [CONS] Routine Physician Instructions: Assess nutrtn needs, initiate, modify, manage TF Reason For Exam: Reason for Consult: Write/Manage Tube Feeding Reason for Consult: Write/Manage Tube Feeding 02/07/19 10:27 Consult to Dietitian/Nutrition [CONS] Routine Physician Instructions: Reason For Exam: Reason for Consult: Write/Manage Tube Feeding 02/07/19 15:08 Consult to Physician [CONS] Routine Comment: Consulting Provider: AMBROCIO DE LA FUENTE Physician Instructions: Reason For Exam: bradycardia/dizziness 02/07/19 15:37 Consult to Dietitian/Nutrition [CONS] Routine Physician Instructions: Assess nutrtn needs, initiate, modify, manage TF Reason For Exam: Reason for Consult: Write/Manage Tube Feeding Reason for Consult: Write/Manage Tube Feeding [facility] Reason for admission: altered level of consciousness Condition: Stable Pertinent studies: CT abdomen and pelvis CT head Abdominal chest x-ray Echocardiogram Hospital course: 78-year-old -[place] male with history of hypertension hyperlipidemia insulin-dependent diabetes and dementia and depression sent from [facility] for decreased sensorium of 1 day duration. Baseline is the patient is normally confused but ambulatory. This morning patient has been very confused and lethargic and not speaking as much as he usually does. No fever or chills. Not ambulatory. No chest pain.Patient was admitted to the hospital symptomatically managed evaluated by nephrology, function closely monitored nephrotoxins avoided Creatinine levels gradually trended down Patient was also hypotensive , possible septic shock, resolved today he is comfortable with no new complaints vital signs stable Physical examination unremarkable Hemodynamically and clinically stable at discharge to SNF today Patient was also evaluated by cardiology medications optimized Symptoms significantly improved Today patient is stable at discharge Discharge diagnosis; -- Acute encephalopathy Multifactorial ,dehydration and acute kidney injury, electrolyte abnormalities, improved --Bradycardia Probably due to hyperkalemia improved, --Lactic acidosis /possible Sepsis Empiric antibiotics , follow cultures Patient started on IV vancomycin and IV cefepime -- Hyperkalemia Significant improvement closely monitor electrolytes --Hypernatremia: Trending down Free water flushes, D5W, monitor sodium levels -- Acute kidney injury Vasomotor nephropathy , creatinine improved from 6.1 at the time of admission to 1.8 today nephrology following, Gentle hydration, avoid nephrotoxins --Hypotension/possible septic shock Significant improvement IV fluids and IV antibiotics, Lactic acid trending down --History of Hypertension We will hold antihypertensives due to hypotension -- Insulin dependent diabetes mellitus Accu-Chek sliding scale coverage and ADA diet ,long-acting insulin As needed, Check hemoglobin A1c 6.8 -- Hyperlipidemia We will hold the statins for now -- Vascular dementia: Continue Exelon patch --H/O Depression As patient confused and hold Zoloft -- DVT prophylaxis Heparin renal dose --Full code status Stable at discharge Disposition: DC/[place]-[facility] Time spent for discharge: 32 min Core Measure Documentation - Palliative Care Palliative Care/ Comfort Measures: Not Applicable - Core Measures Any of the following diagnoses?: heart failure - Heart Failure Discharge Requirements JENNIFER/ARB for LVSD if EF <40%: Yes Beta migue at discharge: Yes Exam - Constitutional Vitals: Temp Pulse Resp BP Pulse Ox 98.5 F 77 16 112/48 100 02/10/19 16:00 02/10/19 15:01 02/10/19 15:01 02/10/19 15:01 02/10/19 15:01 General appearance: Present: no acute distress, well-nourished - EENT Eyes: Present: PERRL, EOM intact - Neck Neck: Present: supple, normal ROM - Respiratory Respiratory effort: normal Respiratory: bilateral: diminished, negative: rales, rhonchi, wheezing - Cardiovascular Rhythm: regular Heart Sounds: Present: S1 & S2 - Extremities Extremities: no ischemia, No edema - Abdominal General gastrointestinal: Present: soft, non-tender, non-distended, normal bowel sounds - Integumentary Integumentary: Present: clear, warm - Musculoskeletal Musculoskeletal: strength equal bilaterally, generalized weakness - Psychiatric Psychiatric: appropriate mood/affect, cooperative - Neurologic Neurologic: CNII-XII intact, moves all extremities Plan Activity: advance as tolerated, fall precautions Diet: diabetic, advance as tolerated, other (mechanical soft diet ) Special Instructions: physical therapy Additional Instructions: Check BMP, magnesium in 3-4 days. fall precaution Follow up with: [facility] [Primary Care Provider] - 3-5 Days AMBROCIO DE LA FUENTE MD [Staff Physician] - 7 Days Prescriptions: Furosemide [Lasix] 20 mg PO QDAY #30 tablet Magnesium Oxide [Mag-Ox] 400 mg PO QDAY #14 tablet
[2019-02-10 17:24] VITALS: BP 109/59
[2019-02-10] MEDS ORDERED: COREG PO SCH (22:00)
[2019-02-10] MEDS ORDERED: SODIUM BICARBONATE PO SCH (22:00)
[2019-02-11] MEDS ORDERED: ZESTRIL PO SCH (10:00)
== END 2019-02-10 18:00 | DRG 70 ==
LOC: ED 12:17 → IMCU 15:41
PROVIDERS: ADMIT Internal Medicine; ATTEND Internal Medicine
DX: G93.40 Encephalopathy, unspecified (principal); N17.0 Acute kidney failure with tubular necrosis; E87.0 Hyperosmolality and hypernatremia; E11.9 Type 2 diabetes mellitus without complications; I50.9 Heart failure, unspecified; K21.9 Gastro-esophageal reflux disease without esophagitis; G30.9 Alzheimer's disease, unspecified; F02.80 Dementia in other diseases classified elsewhere, unspecified severity, without behavioral disturbance, psychotic disturbance, mood disturbance, and anxiety; E87.5 Hyperkalemia; E86.0 Dehydration; E78.2 Mixed hyperlipidemia; F01.50 Vascular dementia, unspecified severity, without behavioral disturbance, psychotic disturbance, mood disturbance, and anxiety; F32.9 Major depressive disorder, single episode, unspecified; R00.1 Bradycardia, unspecified; Z87.891 Personal history of nicotine dependence
CPT/HCPCS: 36415; 70450; 71045; 74018; 74176; 80048; 80053; 80076; 80202; 81001; 82140; 82550; 82962; 83036; 83735; 84295; 84443; 84484; 85025; 85610; 85730; 86850; 86900; 86901; 87040; 93005; 93010; 93306; 94760; G0378; J0692; J1815; J2270; J2405; J2543; J3370; J3475; J7030; J7040; J7050; J7070

== ENCOUNTER 2021-12-08 09:07 | Emergency (ER) | payer MEDICARE ==
--- NOTE | 2021-12-08 09:21 | Emergency Department Report ---
ED CPR HPI - General Chief Complaint: Cardiac Arrest/CPR Stated Complaint: CARDIAC ARREST Time Seen by Provider: 12/08/21 09:20 Source: EMS Mode of arrival: Stretcher Limitations: Other - History of Present Illness Initial Comments: 81-year-old brought in with CPR in progress by the EMS after patient was found down 40 minutes ago. Patient now has about 30 minutes of effective CPR with no response. Patient was given 4 rounds of epinephrine with asystole all throughout. History is very limited on this patient. Patient is intubated. No other modifying factors reported. MD Complaint: found unresponsive Place: home - Related Data Home Medications Medication Instructions Recorded Confirmed Last Taken Acetaminophen [Acetaminophen TAB] 650 mg PO Q4HR PRN 02/06/19 02/06/19 Unknown Acetaminophen/Diphenhydramine 1 each PO Q8H 02/06/19 02/06/19 Unknown [Tylenol Pm Ex-Strength Caplet] Aspirin [Adult Aspirin] 81 mg PO DAILY 02/06/19 02/06/19 Unknown Atorvastatin [Lipitor] 80 mg PO DAILY 02/06/19 02/06/19 Unknown Dextrose [Glucose Gel] 38 gm PO Q15MIN 02/06/19 02/06/19 Unknown Glucagon,Human Recombinant 1 mg IJ Q15MIN 02/06/19 02/06/19 Unknown [Glucagon Emergency Kit] Insulin Regular, Human [HumuLIN R] 10 units IM DAILY 02/06/19 02/06/19 Unknown Magnesium Hydroxide [Milk of 30 ml PO Q24H 02/06/19 02/06/19 Unknown Magnesia] Melatonin [Melatonin 5MG CAP] 5 mg PO QHS 02/06/19 02/06/19 Unknown Nitroglycerin [Nitrostat] 0.4 mg SL Q5M PRN 02/06/19 02/06/19 Unknown Rivastigmine [Rivastigmine Patch 1 each TD DAILY 02/06/19 02/06/19 Unknown 13.3mg/24hr] Sertraline [Zoloft] 50 mg PO QAM 02/06/19 02/06/19 Unknown polyethylene glycoL 3350 [Miralax 17 gm PO DAILY 02/06/19 02/06/19 Unknown 3350] raNITIdine HCl [Zantac] 150 mg PO BID 02/06/19 02/06/19 Unknown Previous Rx's Medication Instructions Recorded Last Taken Type Furosemide [Lasix] 20 mg PO QDAY #30 tablet 02/10/19 Unknown Rx Magnesium Oxide [Mag-Ox] 400 mg PO QDAY #14 tablet 02/10/19 Unknown Rx carvediloL [Coreg] 3.125 mg PO BID tablet 02/10/19 Unknown Rx lisinopriL [Zestril TAB] 2.5 mg PO QDAY tablet 02/10/19 Unknown Rx Allergies Allergy/AdvReac Type Severity Reaction Status Date / Time No Known Allergies Allergy Verified 02/19/18 16:51 ED Review of Systems ROS: Stated complaint: CARDIAC ARREST Other details as noted in HPI Comment: Unobtainable due to pts medical conditions ED Past Medical Hx - Past Medical History Hx Congestive Heart Failure: Yes Hx Diabetes: Yes Hx GERD: Yes Additional medical history: Hx Alzheimer's disease; Dementia; Rhabdomyolysis - Social History Smoking Status: Former Smoker Substance Use Type: Alcohol - Medications Home Medications: Home Medications Medication Instructions Recorded Confirmed Last Taken Type Acetaminophen [Acetaminophen TAB] 650 mg PO Q4HR PRN 02/06/19 02/06/19 Unknown History Acetaminophen/Diphenhydramine 1 each PO Q8H 02/06/19 02/06/19 Unknown History [Tylenol Pm Ex-Strength Caplet] Aspirin [Adult Aspirin] 81 mg PO DAILY 02/06/19 02/06/19 Unknown History Atorvastatin [Lipitor] 80 mg PO DAILY 02/06/19 02/06/19 Unknown History Dextrose [Glucose Gel] 38 gm PO Q15MIN 02/06/19 02/06/19 Unknown History Glucagon,Human Recombinant 1 mg IJ Q15MIN 02/06/19 02/06/19 Unknown History [Glucagon Emergency Kit] Insulin Regular, Human [HumuLIN R] 10 units IM DAILY 02/06/19 02/06/19 Unknown History Magnesium Hydroxide [Milk of 30 ml PO Q24H 02/06/19 02/06/19 Unknown History Magnesia] Melatonin [Melatonin 5MG CAP] 5 mg PO QHS 02/06/19 02/06/19 Unknown History Nitroglycerin [Nitrostat] 0.4 mg SL Q5M PRN 02/06/19 02/06/19 Unknown History Rivastigmine [Rivastigmine Patch 1 each TD DAILY 02/06/19 02/06/19 Unknown History 13.3mg/24hr] Sertraline [Zoloft] 50 mg PO QAM 02/06/19 02/06/19 Unknown History polyethylene glycoL 3350 [Miralax 17 gm PO DAILY 02/06/19 02/06/19 Unknown History 3350] raNITIdine HCl [Zantac] 150 mg PO BID 02/06/19 02/06/19 Unknown History Furosemide [Lasix] 20 mg PO QDAY #30 tablet 02/10/19 Unknown Rx Magnesium Oxide [Mag-Ox] 400 mg PO QDAY #14 tablet 02/10/19 Unknown Rx carvediloL [Coreg] 3.125 mg PO BID tablet 02/10/19 Unknown Rx lisinopriL [Zestril TAB] 2.5 mg PO QDAY tablet 02/10/19 Unknown Rx ED Physical Exam - General Limitations: Other (Unresponsive/cardiac arrest/intubated) - Head Head exam: Present: other - Eye Eye exam: Present: other (Fully dilated and unresponsive) Pupils: Present: other (Fully dilated and unresponsive) - Respiratory Respiratory exam: Present: other (Cardiopulmonary arrest) - Cardiovascular Cardiovascular Exam: Present: other (No cardiac activity) ED Course - Reevaluation(s) Reevaluation #1: 12/08/21 09:28 Patient will have 30 minutes of effective CPR with 4 rounds of epi and continue to be asystole. After confirming no cardiac activities with fully dilated pupils bilaterally and unresponsive CPR called to stop. Patient time of 9:06 AM on December 08, 2021. Reevaluation #2: 12/08/21 12:26 Pt taken away from the ED by the [facility] Critical care attestation.: If time is entered above; I have spent that time in minutes in the direct care of this critically ill patient, excluding procedure time. ED Disposition Clinical Impression: Cardiopulmonary arrest, Cardiac arrest Disposition: 20 Is pt being admited?: No Condition: Stable
[2021-12-08] MEDS ORDERED: EPINEPHrine 1 MG/10 ML SYRINGE ONE (18:00)
[2021-12-08] MEDS ORDERED: SODIUM CHLORIDE 0.9% 50 ML IVPB ONE (18:00)
[2021-12-08] MEDS ORDERED: SODIUM BICARB 8.4% 50 MEQ/50 ML SYRINGE IV ONE (18:00)
== END 2021-12-08 13:12 ==
LOC: ED 09:07
DX: I46.9 Cardiac arrest, cause unspecified (principal)
CPT/HCPCS: 92950; 99285; J0171